=== PATIENT | male | born 1950 | race Caucasian/White ===

== ENCOUNTER 2024-07-17 19:45 | Inpatient (IN) | payer MEDICARE, OTHER, SELFPAY ==
[2024-07-17] VITALS (35 sets, daily range): BP systolic 72–112; BP diastolic 21–86; PULSE 43–124; RESP 10–22; TEMP 37.3; O2SAT 90–100; BMI 19.3
--- NOTE | 2024-07-17 20:00 | RAD_ITS ---
PROCEDURE: CHEST PA AND LATERAL 07/17/2024 REASON FOR EXAM: NEUTROPENIC FEVER TECHNIQUE: Frontal and lateral views of the chest. COMPARISON: None FINDINGS: Hardware: None Heart: Unremarkable. Mediastinum: Moderate-sized hiatal hernia. Lungs: Unremarkable. Bones: Multiple chronic compression fractures of the thoracic spine. RAD/Chest PA and Lateral IMPRESSION: No active disease. Reading Location: [id number]
--- NOTE | 2024-07-17 20:15 | EX.ED.DYSGE1 ---
HPI <NEHEMIAS Knox - Last Filed: 07/17/24 22:13> History of Present Illness Chief Complaint: Weakness Narrative Narrative: 73-year-old male with PMH of cutaneous T-cell lymphoma, squamous cell cancer, adrenal insufficiency, and hypothyroidism presents with 1 week of malaise, intermittent fever and chills, decreased appetite, and family thinks he is more confused over the last 1 to 2 days. 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 He was seen by [facility] eye doctor 1 week ago and prescribed ofloxacin eyedrops for an infection. He had a follow-up visit today in the change the antibiotic. Due to past infections he has very limited vision in the left eye and it is unchanged. He also has chronic skin redness and peeling which is unchanged from his lymphoma. He was on infusion treatments for the lymphoma but they were stopped in March 2024 because they were not helping. 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 His family called Dr. Camacho who is his overseeing physician for this at [facility] in [place] and they stated the patient could come in the office tomorrow for evaluation but family felt he was getting weaker and brought him in. PFSH <NEHEMIAS Knox - Last Filed: 07/17/24 22:13> [facility] Home Medications ?Medication ?Instructions ?Recorded ?Last Taken ?Type albuterol 90 mcg/actuation aerosol 180 mcg inhalation Q6H PRN 07/17/24 Unknown History inhaler ascorbic acid (vitamin C) 250 mg 250 mg PO BID 07/17/24 Unknown History tablet carboxymethylcellulose 1 ea miscellaneous .hourly 07/17/24 Unknown History carboxymethylcellulose sodium 1 % 1 drp EACH EYE Q1H 07/17/24 Unknown History eye liquid gel drops (Refresh Liquigel) emollient combination no.119 1 applic topical DAILY 07/17/24 Unknown History (Eucerin Advanced Repair topical cream) erythromycin 5 mg/gram (0.5 %) eye 1 applic EACH EYE DAILY 07/17/24 Unknown History ointment folic acid 1 mg tablet 3 mg PO DAILY 07/17/24 Unknown History furosemide 20 mg tablet 20 mg PO DAILY 07/17/24 Unknown History hydrocortisone 5 mg tablet (Cortef) 5 mg PO DAILY 07/17/24 Unknown History hydroxyzine HCl 25 mg tablet 25 mg PO TID PRN anxiety 07/17/24 Unknown History levothyroxine 50 mcg tablet 50 mcg PO DAILY 07/17/24 Unknown History (Euthyrox) loratadine 10 mg tablet 10 mg PO DAILY 07/17/24 Unknown History metronidazole 250 mg tablet 250 mg PO BID 07/17/24 Unknown History mogamulizumab-kpkc 4 mg/mL IV 07/17/24 Unknown History intravenous solution (Poteligeo) multivitamin with minerals 1 tab PO DAILY 07/17/24 Unknown History ofloxacin 0.3 % eye drops (Ocuflox) 1 drp EACH EYE Q6H 07/17/24 Unknown History omeprazole 40 mg capsule,delayed 40 mg PO DAILY 07/17/24 Unknown History release polyethylene glycol 3350 17 17 g PO DAILY 07/17/24 Unknown History gram/dose oral powder (Miralax) prednisolone acetate 1 % eye 1 drp LEFT EYE BID 07/17/24 Unknown History drops,suspension sennosides 8.6 mg tablet 8.6 mg PO DAILY 07/17/24 Unknown History (Evac-U-Gen (sennosides)) thiamine HCl (vitamin B1) 100 mg 100 mg PO DAILY 07/17/24 Unknown History tablet triamcinolone acetonide 0.1 % 1 applic topical BID 07/17/24 Unknown History topical ointment valacyclovir 500 mg tablet 500 mg PO DAILY 07/17/24 Unknown History zinc sulfate 50 mg zinc (220 mg) 50 mg PO DAILY 07/17/24 Unknown History capsule (Zinc-220) Allergy/AdvReac Type Severity Reaction Status Date / Time aspirin Allergy Severe Angioedema Verified 07/17/24 19:55 moxifloxacin Allergy Severe Swelling Verified 07/17/24 19:55 shellfish derived Allergy Severe Anaphylaxis Verified 07/17/24 19:55 cemiplimab-rwlc Allergy Intermediate Rash Verified 07/17/24 19:55 Social History Smoking Status: Never smoker ROS <NEHEMIAS Knox - Last Filed: 07/17/24 22:13> ROS ED ROS Narrative Constitutional: Positive for fever, chills, malaise. CVS: Negative for chest pain. Respiratory: Negative for shortness of breath. GI: Negative for abdominal pain, nausea, vomiting, diarrhea. EXAM <NEHEMIAS Knox - Last Filed: 07/17/24 22:13> Physical Exam Narrative Exam Narrative: CONST: Thin male sitting in no acute distress. EYES: Mild left film over her left eye?being treated for eye infection. Chronic decreased vision ENT: Normal inspection, dry mucous membranes. NECK: Normal inspection. No meningismus. RESP: No respiratory distress, CTAB. CVS: Regular rate and rhythm, no murmur, no gallop. ABD: Soft and nontender, no guarding or rebound, nondistended. SKIN: Overall his skin is red, dry, and peeling. No skin sloughing. EXTREMITIES: Normal appearance, no pedal edema. NEURO: Alert and answering questions appropriately. Hard of hearing. PSYCH: Normal affect. Const Vital Signs: 07/17/24 19:46 07/17/24 19:46 07/17/24 19:47 Temperature 99.2 F H Temperature Source Oral Pulse Rate 124 H Respiratory Rate 22 H Respiratory Effort Normal Non-Labored Blood Pressure 72/21 L 81/28 L Blood Pressure Mean 38 45 Pulse Ox 94 Oxygen Delivery Method Room Air 07/17/24 19:53 07/17/24 20:00 07/17/24 20:15 Temperature 99.2 F H Temperature Source Oral Pulse Rate 124 H Respiratory Rate 22 H Respiratory Effort Blood Pressure 81/28 L 95/48 L Blood Pressure Mean 45 64 Pulse Ox 94 Oxygen Delivery Method Room Air Room Air 07/17/24 20:16 07/17/24 20:30 07/17/24 20:31 Temperature Temperature Source Pulse Rate 63 46 L 46 L Respiratory Rate 16 15 16 Respiratory Effort Blood Pressure 87/28 L 79/55 L Blood Pressure Mean 47 63 Pulse Ox 100 100 99 Oxygen Delivery Method 07/17/24 20:45 07/17/24 20:46 07/17/24 20:47 Temperature Temperature Source Pulse Rate 46 L Respiratory Rate 12 12 Respiratory Effort Blood Pressure 94/75 89/43 L Blood Pressure Mean 83 58 Pulse Ox 91 Oxygen Delivery Method Room Air 07/17/24 20:51 07/17/24 20:55 07/17/24 21:00 Temperature Temperature Source Pulse Rate 45 L 48 L Respiratory Rate 15 12 19 H Respiratory Effort Blood Pressure 89/43 L 85/47 L 97/48 L Blood Pressure Mean 57 60 64 Pulse Ox 91 Oxygen Delivery Method Room Air 07/17/24 21:00 07/17/24 21:10 07/17/24 21:15 Temperature Temperature Source Pulse Rate 56 L Respiratory Rate 12 18 17 Respiratory Effort Blood Pressure 96/56 L 97/48 L Blood Pressure Mean 68 63 Pulse Ox 91 90 Oxygen Delivery Method 07/17/24 21:20 07/17/24 21:30 07/17/24 21:40 Temperature Temperature Source Pulse Rate 48 L Respiratory Rate 13 16 11 L Respiratory Effort Blood Pressure 88/48 L 105/57 L 98/49 L Blood Pressure Mean 60 72 63 Pulse Ox 91 90 91 Oxygen Delivery Method 07/17/24 21:45 07/17/24 21:50 07/17/24 22:00 Temperature Temperature Source Pulse Rate Respiratory Rate 14 19 H 12 Respiratory Effort Blood Pressure 104/75 105/64 Blood Pressure Mean 86 76 Pulse Ox 92 Oxygen Delivery Method 07/17/24 22:10 07/17/24 22:15 07/17/24 22:20 Temperature Temperature Source Pulse Rate 44 L Respiratory Rate 14 11 L 15 Respiratory Effort Blood Pressure 99/40 L 93/52 L Blood Pressure Mean 60 65 Pulse Ox Oxygen Delivery Method 07/17/24 22:30 07/17/24 22:40 07/17/24 22:45 Temperature Temperature Source Pulse Rate 49 L 44 L Respiratory Rate 13 10 L 14 Respiratory Effort Blood Pressure 90/36 L 105/53 L Blood Pressure Mean 52 70 Pulse Ox Oxygen Delivery Method 07/17/24 22:50 07/17/24 23:00 Temperature Temperature Source Pulse Rate 44 L Respiratory Rate 13 14 Respiratory Effort Blood Pressure 100/54 L 111/56 L Blood Pressure Mean 67 73 Pulse Ox 98 98 Oxygen Delivery Method <Dr. Dequan Hilario, DO - Last Filed: 07/17/24 23:47> Physical Exam Const Vital Signs: 07/17/24 19:46 07/17/24 19:46 07/17/24 19:47 Temperature 99.2 F H Temperature Source Oral Pulse Rate 124 H Respiratory Rate 22 H Respiratory Effort Normal Non-Labored Blood Pressure 72/21 L 81/28 L Blood Pressure Mean 38 45 Pulse Ox 94 Oxygen Delivery Method Room Air 07/17/24 19:53 07/17/24 20:00 07/17/24 20:15 Temperature 99.2 F H Temperature Source Oral Pulse Rate 124 H Respiratory Rate 22 H Respiratory Effort Blood Pressure 81/28 L 95/48 L Blood Pressure Mean 45 64 Pulse Ox 94 Oxygen Delivery Method Room Air Room Air 07/17/24 20:16 07/17/24 20:30 07/17/24 20:31 Temperature Temperature Source Pulse Rate 63 46 L 46 L Respiratory Rate 16 15 16 Respiratory Effort Blood Pressure 87/28 L 79/55 L Blood Pressure Mean 47 63 Pulse Ox 100 100 99 Oxygen Delivery Method 07/17/24 20:45 07/17/24 20:46 07/17/24 20:47 Temperature Temperature Source Pulse Rate 46 L Respiratory Rate 12 12 Respiratory Effort Blood Pressure 94/75 89/43 L Blood Pressure Mean 83 58 Pulse Ox 91 Oxygen Delivery Method Room Air 07/17/24 20:51 07/17/24 20:55 07/17/24 21:00 Temperature Temperature Source Pulse Rate 45 L 48 L Respiratory Rate 15 12 19 H Respiratory Effort Blood Pressure 89/43 L 85/47 L 97/48 L Blood Pressure Mean 57 60 64 Pulse Ox 91 Oxygen Delivery Method Room Air 07/17/24 21:00 07/17/24 21:10 07/17/24 21:15 Temperature Temperature Source Pulse Rate 56 L Respiratory Rate 12 18 17 Respiratory Effort Blood Pressure 96/56 L 97/48 L Blood Pressure Mean 68 63 Pulse Ox 91 90 Oxygen Delivery Method 07/17/24 21:20 07/17/24 21:30 07/17/24 21:40 Temperature Temperature Source Pulse Rate 48 L Respiratory Rate 13 16 11 L Respiratory Effort Blood Pressure 88/48 L 105/57 L 98/49 L Blood Pressure Mean 60 72 63 Pulse Ox 91 90 91 Oxygen Delivery Method 07/17/24 21:45 07/17/24 21:50 07/17/24 22:00 Temperature Temperature Source Pulse Rate Respiratory Rate 14 19 H 12 Respiratory Effort Blood Pressure 104/75 105/64 Blood Pressure Mean 86 76 Pulse Ox 92 Oxygen Delivery Method 07/17/24 22:10 07/17/24 22:15 07/17/24 22:20 Temperature Temperature Source Pulse Rate 44 L Respiratory Rate 14 11 L 15 Respiratory Effort Blood Pressure 99/40 L 93/52 L Blood Pressure Mean 60 65 Pulse Ox Oxygen Delivery Method 07/17/24 22:30 07/17/24 22:40 07/17/24 22:45 Temperature Temperature Source Pulse Rate 49 L 44 L Respiratory Rate 13 10 L 14 Respiratory Effort Blood Pressure 90/36 L 105/53 L Blood Pressure Mean 52 70 Pulse Ox Oxygen Delivery Method 07/17/24 22:50 07/17/24 23:00 Temperature Temperature Source Pulse Rate 44 L Respiratory Rate 13 14 Respiratory Effort Blood Pressure 100/54 L 111/56 L Blood Pressure Mean 67 73 Pulse Ox 98 98 Oxygen Delivery Method MDM <NEHEMIAS Knox - Last Filed: 07/17/24 22:13> [facility] Narrative Medical decision making narrative: History gathered from: Patient and multiple family members 73-year-old male with history of adrenal insufficiency, cutaneous T-cell lymphoma, squamous cell cancer on immunotherapy presents with 1 week of generalized malaise, weakness, fever and chills. He is being treated for left eye infection which he gets recurrently secondary to his lymphoma. He is awake and alert. BP 72/21, HR 124, RR 22, 94% on room air, 99.2 ?F. He has dry mucous membranes. His skin is generally red, dry, and peeling which is chronic per his family members. He has a normal cardiopulmonary exam. Abdomen soft and nontender. Sepsis workup was initiated and he was given IV fluids at 30 cc/kg (2 L) and blood pressure is improving. He was also given a stress dose of IV hydrocortisone 100 mg and empiric vancomycin and Zosyn after blood cultures. WBC is 7.0. Hemoglobin 11.8. Normal electrolytes. BUN 53, creatinine 1.77. He has no prior labs in our system for comparison. CXR and UA are negative for infection. COVID/flu/RSV is negative. At this time he is septic without a source and with history of immunocompromise and adrenal insufficiency I think he should be transferred to [facility] where all his specialists are located. We do not have the appropriate resources to care for this patient at [place]. I discussed the case with the [facility] transfer line and am awaiting a return call. Lab Data Attestation: I reviewed the patient's lab results. Labs: Laboratory Results - last 24 hr 07/17/24 07/17/24 20:15 20:30 WBC 7.0 RBC 3.64 L Hgb 11.8 L Hct 34.9 L MCV 95.9 H MCH 32.4 H MCHC 33.8 RDW Std Deviation 50.5 H RDW Coeff of Silvio 14.3 Plt Count 136 L MPV 9.5 Immature Gran % (Auto) 0.300 Neut % (Auto) 66.0 Lymph % (Auto) 19.3 [place] % (Auto) 8.3 Eos % (Auto) 5.7 H Baso % (Auto) 0.4 Absolute Neuts (auto) 4.6 Absolute Lymphs (auto) 1.35 Nucleated RBC % 0 Differential Comment SCANNED Reactive Lymphocytes RARE PT 12.7 INR 0.9 APTT 40.7 H Sodium 140 Potassium 4.5 Chloride 105 Carbon Dioxide 23.0 Anion Gap 11 BUN 53 H Creatinine 1.77 H Estim Creat Clear Calc 28.12 L Est GFR (MDRD) Non-Af 40 L BUN/Creatinine Ratio 30.1 H Glucose 169 H Lactic Acid 3.0 H* Calcium 8.6 Total Bilirubin 0.18 AST 46 H ALT 38 Alkaline Phosphatase 233 H Total Protein 5.2 L Albumin 2.9 L Globulin 2.3 Albumin/Globulin Ratio 1.3 Urine Color Yellow Urine Clarity Clear Urine pH 5.0 Ur Specific [place] 1.020 Urine Protein 30 H Urine Glucose (UA) Normal Urine Ketones Negative Urine Occult Blood Negative Urine Nitrite Negative Urine Bilirubin Negative Urine Urobilinogen Normal Ur Leukocyte Esterase Negative Urine RBC 0 SEEN Urine WBC 0 SEEN Ur Squamous Epith Cells 0 SEEN Urine Bacteria RARE Urine Mucus 0 SEEN Radiography Diagnostic Testing: Clinical Impression(s) from Imaging Studies Chest X-Ray 07/17/24 20:00 IMPRESSION: No active disease. Reading Location: [id number] ED attending interpretation of 2 view chest x-ray shows normal heart size, no acute infiltrate. <Dr. Dequan Hilario, DO - Last Filed: 07/17/24 23:47> [facility] History & Record Review Discussion w/independent historian: Patient and Family Lab Data Labs: Laboratory Results - last 24 hr 07/17/24 07/17/24 20:15 20:30 WBC 7.0 RBC 3.64 L Hgb 11.8 L Hct 34.9 L MCV 95.9 H MCH 32.4 H MCHC 33.8 RDW Std Deviation 50.5 H RDW Coeff of Silvio 14.3 Plt Count 136 L MPV 9.5 Immature Gran % (Auto) 0.300 Neut % (Auto) 66.0 Lymph % (Auto) 19.3 [place] % (Auto) 8.3 Eos % (Auto) 5.7 H Baso % (Auto) 0.4 Absolute Neuts (auto) 4.6 Absolute Lymphs (auto) 1.35 Nucleated RBC % 0 Differential Comment SCANNED Reactive Lymphocytes RARE PT 12.7 INR 0.9 APTT 40.7 H Sodium 140 Potassium 4.5 Chloride 105 Carbon Dioxide 23.0 Anion Gap 11 BUN 53 H Creatinine 1.77 H Estim Creat Clear Calc 28.12 L Est GFR (MDRD) Non-Af 40 L BUN/Creatinine Ratio 30.1 H Glucose 169 H Lactic Acid 3.0 H* Calcium 8.6 Total Bilirubin 0.18 AST 46 H ALT 38 Alkaline Phosphatase 233 H Total Protein 5.2 L Albumin 2.9 L Globulin 2.3 Albumin/Globulin Ratio 1.3 Urine Color Yellow Urine Clarity Clear Urine pH 5.0 Ur Specific [place] 1.020 Urine Protein 30 H Urine Glucose (UA) Normal Urine Ketones Negative Urine Occult Blood Negative Urine Nitrite Negative Urine Bilirubin Negative Urine Urobilinogen Normal Ur Leukocyte Esterase Negative Urine RBC 0 SEEN Urine WBC 0 SEEN Ur Squamous Epith Cells 0 SEEN Urine Bacteria RARE Urine Mucus 0 SEEN Radiography Diagnostic Testing: Clinical Impression(s) from Imaging Studies Chest X-Ray 07/17/24 20:00 IMPRESSION: No active disease. Reading Location: [facility] Management Discussion w/another healthcare provider: Hospitalist and Archival Studies Professor ([facility]) Treatment and Re-Evaluation :: I have personally performed a face to face assessment of the patient and have reviewed the CARLOS Note. I performed a substantive portion of the visit including all aspects of the following. My [place] findings include: History is 73-year-old male who has not been here before presenting to the emergency room with hypotension. Patient has a history of T-cell lymphoma renal insufficiency as well as squamous cell carcinoma of the scalp. Follows at [facility]. He is on immunotherapy and is on hydrocortisone. Patient's had a slight cough recently temperatures around 99. Exam is afebrile vital signs demonstrate hypotension and tachycardia. Rhythm appears to be sinus tachycardia on the monitor. Patient has chronic skin changes which the family notes are unchanged which include erythematous hue to his skin as well as dry skin that is flaking. He has chronic changes of the eyes consistent with a long-term infection for which he has been treated. He is alert functionally blind Medical Decison Making basic blood work shows a normal white count. After 2 L of IV fluids his blood pressure responded currently 111/56 with a heart rate of 44. This is being read by the computer as a junctional bradycardia there is a very wavy baseline and I believe him seeing P waves noted V1 V2. As well as in 3. negative interpretation of the chest x-ray is no acute process. Lactic acid is elevated at 3. BUN and creatinine ratio are elevated. Blood cultures obtained COVID influenza RSV swabs were negative. He received vancomycin and Zosyn. [facility] is excepted the patient in transfer unfortunately will have a bed tonight. Spoke with her hospitalist who would like a CT of his chest abdomen pelvis performed. Discharge Plan Triage Chief Complaint: Weakness ED Midlevel Provider: Alondra Fink ED Provider: Dequan Hilario Dx/Rx/DC Orders Clinical Impression: Sepsis, T-cell lymphoma, Adrenal insufficiency, Acute hypotension, Generalized weakness Prescriptions: No Action albuterol 90 mcg/actuation aerosol 180 mcg inhalation Q6H PRN ascorbic acid (vitamin C) 250 mg tablet 250 mg PO BID carboxymethylcellulose Granules 1 ea miscellaneous .hourly erythromycin 5 mg/gram (0.5 %) ointment 1 applic EACH EYE DAILY Eucerin Advanced Repair Cream 1 applic topical DAILY folic acid 1 mg tablet 3 mg PO DAILY furosemide 20 mg tablet 20 mg PO DAILY hydrocortisone [Cortef] 5 mg tablet 5 mg PO DAILY hydroxyzine HCl 25 mg tablet 25 mg PO TID PRN (Reason: anxiety) levothyroxine [Euthyrox] 50 mcg tablet 50 mcg PO DAILY loratadine 10 mg tablet 10 mg PO DAILY metronidazole 250 mg tablet 250 mg PO BID Rx Instructions: Dissolve 1 tablet in 250 mL of NS. [place] on lesion BID multivitamin with minerals Tablet 1 tab PO DAILY ofloxacin [Ocuflox] 0.3 % drops 1 drp EACH EYE Q6H omeprazole 40 mg capsule,delayed release(DR/EC) 40 mg PO DAILY polyethylene glycol 3350 [Miralax] 17 gram/dose powder 17 g PO DAILY carboxymethylcellulose sodium [Refresh Liquigel] 1 % drops, liquid gel 1 drp EACH EYE Q1H Rx Instructions: while awake; not to exceed 16 doses per 24 hour period Poteligeo 4 mg/mL solution IV prednisolone acetate 1 % drops,suspension 1 drp LEFT EYE BID sennosides [Evac-U-Gen (sennosides)] 8.6 mg tablet 8.6 mg PO DAILY thiamine HCl (vitamin B1) 100 mg tablet 100 mg PO DAILY triamcinolone acetonide 0.1 % ointment 1 applic topical BID valacyclovir 500 mg tablet 500 mg PO DAILY zinc sulfate [Zinc-220] 50 mg zinc (220 mg) capsule 50 mg PO DAILY Primary Care Provider: Vincent Ash Referrals: Vincent Ash MD [Primary Care Provider] - Print Language: Czech Disposition Disposition: Acute Care Hospital Discharge Location: [facility]
[2024-07-17 20:39] LABS: Absolute Lymphocyte Count 1.35 X10^3/uL (0.83-4.51); Absolute Neutrophil Count 4.6 X10^3/uL (2.0-7.7); Basophil# 0.03 X10^3/uL; Basophil% 0.4 % (0-1); Eosinophils% 5.7 % (0-5); Hematocrit 34.9 % (40-54); Hemoglobin 11.8 g/dL (13.0-16.5); Lymphocyte # 1.35 X10^3/ul (0.83-4.51); Lymphocyte % 19.3 % (19-41); Mean Corp Hgb Conc 33.8 g/dL (32-36); Mean Corpuscular Hgb 32.4 pg (27.0-32.0); Mean Corpuscular Volume 95.9 fL (80-94); Mean Platelet Vol. 9.5 fl (6.2-12.0); Monocyte# 0.58 X10^3/uL; Monocyte% 8.3 % (0-10); NRBC Flagged by Analyzer 0 % (0-5); Neutrophil # 4.63 X10^3/uL (2.7-7.7); POSITIVE MORPHOLOGY YES; Platelet Count 136 K/mm3 (150-450); RBC Distribution Width CV 14.3 % (11.6-14.6); RBC Distribution Width SD 50.5 fl (35.1-43.9); Red Blood Count 3.64 M/mm3 (4.6-6.2)
[2024-07-17 20:42] LABS: Mucous, Urine 0 SEEN /hpf (<or=2+); Red Blood Cells-Urine 0 SEEN /hpf (0-5); Squamous Epithelial Cells - UA 0 SEEN /hpf (0-5); White Blood Cells 0 SEEN /hpf (0-5)
[2024-07-17 20:43] LABS: International Normalized Ratio 0.9; Prothrombin Time (Protime)PT. 12.7 SECONDS (11.7-14.9)
[2024-07-17 20:44] LABS: Partial Thromboplast Time 40.7 Seconds (24.1-36.2)
[2024-07-17 20:45] LABS: Differential Indicated SCAN CRITERIA MET
[2024-07-17 20:48] LABS: Color, Urine Yellow (Yellow); Glucose, Dipstick Normal (Normal); Ketone-Dipstick Negative (Negative); Leukocyte Esterase-Dipstick Negative /ul (Negative); Nitrite-Dipstick Negative (Negative); Occult Blood-Urine Negative /ul (Negative); Protein-Dipstick 30 mg/dl (Negative); Urine Bilirubin Dipstick Negative (Negative); Urine Clarity Clear (Clear); Urine Urobilinogen Normal (Normal)
[2024-07-17 20:58] LABS: Bacteria RARE /hpf (None Seen)
[2024-07-17 21:03] LABS: ALB/GLOB Ratio 1.3 RATIO (0.9-2.4); AST(SGOT) 46 U/L (<=37); Alanine Aminotransfer ALT/SGPT 38 U/L (<=46); Albumin, Serum 2.9 g/dL (3.4-4.8); Alkaline Phosphatase 233 U/L (40-129); Anion Gap 11 (5-15); BUN 53 mg/dL (4-19); BUN/Creat Ratio 30.1 RATIO (10-20); Calcium,Total 8.6 mg/dL (7.6-11.0); Chloride 105 mmol/L (98-108); Creatinine, Serum 1.77 mg/dL (0.70-1.20); EST Glomerular Filtration Rate 40 (>60); Estimated Creatinine Clearance 28.12 ml/min (50-250); Globulin 2.3 g/dL (2.2-4.2); Glucose 169 mg/dL (70-99); Potassium 4.5 mmol/L (3.3-5.1); Protein, Total 5.2 g/dL (5.9-8.4); Sodium Level 140 mmol/L (133-145); Total Bilirubin 0.18 mg/dL (0.00-1.30)
[2024-07-17] MEDS: Acetaminophen 325 MG Tablet 650 MG PO (21:12)
[2024-07-17] MEDS: Hydrocortisone Sod Succinate 100 MG/2 ML Vial IV (21:12)
[2024-07-17 21:23] LABS: Differential Comment SCANNED; Reactive Lymphocyte RARE
[2024-07-17] MEDS: Piperacil/Tazobactam 3.375 GM in 0.9% Normal Saline (50mL MB+) 50 ML IV (21:39)
--- NOTE | 2024-07-17 21:39 | PCA ---
prior to calling [facility] for potential transfer, confirmed with NEHEMIAS and that [facility] would be the closest facility with the appropriate capabilities (in reference to Medicare pt transportation update stating transport not being covered over 25 miles if there's closer facility with same capabilities).
[2024-07-17] MEDS: 0.9% Normal Saline (1000mL) 1,000 ML 999 ML IV ×2 (22:56→23:10)
[2024-07-17] MEDS: Vancomycin IV 1,000 MG/200 ML BAG 200 MG IV (22:56)
--- NOTE | 2024-07-17 23:09 | HP.PCM.HOS_ITS ---
[facility] - General General Date of Admission: 07/17/24 Date of Service: 07/17/24 Chief Complaint: Generalized Weakness, Fever and Confusion. 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; on immunotherapy with mogamulizumab followed by [facility] oncology, history of adrenal insufficiency; on hydrocortisone 5 mg daily, hypothyroidism; on levothyroxine, essential hypertension; on furosemide, history of seasonal allergies; on loratadine daily, history of anxiety; on as needed hydroxyzine 3 times daily, GERD; on omeprazole, chronic constipation; on MiraLAX and senna, and recently diagnosed Left eye infection; diagnosed at [facility] ophthalmology ~1 week ago with patient currently taking ofloxacin eyedrops OU every 6 hours who presents to [facility] ER complaining of generalized weakness, fever and confusion. Mr. Gutierrez is not a fully-reliable historian at this time so information was gathered from chart, medical staff and computer. According to the records his symptoms began ~1-2 days prior to admission with intermittent fevers, chills, decreased appetite and worsening confusion noted by his family. He had a follow-up visit earlier today with [facility] ophthalmology as his previous antibiotic treatment was not helping with his Left eye appearing unchanged from previous. He also was noted to have chronic skin redness and peeling which is unchanged from previous and has been attributed to his lymphoma. He was on infusion treatments for the lymphoma but they were stopped in March 2024 because they were not helping. 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 His family contacted Dr. Camacho, who is his overseeing physician at [facility] in [place] and were informed that patient could come in the office tomorrow for further evaluation and treatment but patient seemed to be getting worse so they brought him here for further evaluation and treatment. In the ER he was noted to have severe Hypotension with a blood pressure of 72/21 mmHg with Lactic Acidosis of 3 mmol/L present on admission consistent with suspected Sepsis +/- Adrenal Insufficiency with CT scan in the ER revealing p atchy ground-glass opacity within the Right upper lobe concerning for infectious/inflammatory process with several mildly prominent axillary lymph nodes and inguinal lymph nodes raising concern for lymphoma or metastatic disease and age indeterminant compression deformity of T12 vertebral body with ~90% loss of vertebral body height complicated by suspected DARYL; with elevated serum creatinine of 1.77 mg/dL and being at 53 mg/dL BUN and elevated BUN/creatinine ratio of 30.1 present on admission indicating Dehydration compounded by clinical evidence of Metabolic Encephalopathy and Generalized Weakness with the ER physician contacting [facility], who graciously agreed to accept this patient in transfer when a bed is available. However, due to the lack of bed availability at this time the hospitalist service was contacted to admit this patient until such time a bed becomes available. He was then admitted to the ICU for ongoing care for a stay that is expected to extend beyond 2 midnights. PFSH Home Medications ?Medication ?Instructions ?Recorded ?Last Taken ?Type albuterol 90 mcg/actuation aerosol 180 mcg inhalation Q6H PRN 07/17/24 Unknown History inhaler ascorbic acid (vitamin C) 250 mg 250 mg PO BID 5 Unknown History tablet carboxymethylcellulose 1 ea miscellaneous .hourly 0 07/17/24 Unknown History carboxymethylcellulose sodium 1 % 1 drp EACH EYE Q1H 0 07/17/24 Unknown History eye liquid gel drops (Refresh Liquigel) emollient combination no.119 1 applic topical DAILY Unknown History (Eucerin Advanced Repair topical cream) erythromycin 5 mg/gram (0.5 %) eye 1 applic EACH EYE D AILY 07/17/24 Unknown History ointment folic acid 1 mg tablet 3 mg PO DAILY 07/17/24 Unkno wn History furosemide 20 mg tablet 20 mg PO DAILY 07/17/24 Unkn own History hydrocortisone 5 mg tablet (Cortef) 5 mg PO DAILY 11/03 Unknown History hydroxyzine HCl 25 mg tablet 25 mg PO TID PRN anxiety 07/17/24 Unknown History levothyroxine 50 mcg tablet 50 mcg PO DAILY 07/17/24 U nknown History (Euthyrox) loratadine 10 mg tablet 10 mg PO DAILY 07/17/24 Unkn own History metronidazole 250 mg tablet 250 mg PO BID 07/17/24 Unk nown History mogamulizumab-kpkc 4 mg/mL IV 07/17/24 Unknown History intravenous solution (Poteligeo) multivitamin with minerals 1 tab PO DAILY 07/17/24 Unk nown History ofloxacin 0.3 % eye drops (Ocuflox) 1 drp EACH EYE Q6H 07/17/24 Unknown History omeprazole 40 mg capsule,delayed 40 mg PO DAILY Unknown History release polyethylene glycol 3350 17 17 g PO DAILY 07/17/24 Unk nown History gram/dose oral powder (Miralax) prednisolone acetate 1 % eye 1 drp LEFT EYE BID Unknown History drops,suspension sennosides 8.6 mg tablet 8.6 mg PO DAILY 07/17/24 Unk nown History (Evac-U-Gen (sennosides)) thiamine HCl (vitamin B1) 100 mg 100 mg PO DAILY 07/17 Unknown History tablet triamcinolone acetonide 0.1 % 1 applic topical BID 11/03 Unknown History topical ointment valacyclovir 500 mg tablet 500 mg PO DAILY 07/17/24 Un known History zinc sulfate 50 mg zinc (220 mg) 50 mg PO DAILY Unknown History capsule (Zinc-220) Allergy/AdvReac Type Severity Reaction Status Date / Time aspirin Allergy Severe Angioedema Verified 07/17/24 19:55 moxifloxacin Allergy Severe Swelling Verified 07/17/24 19:55 shellfish derived Allergy Severe Anaphylaxis Verified 07/17/24 19:55 cemiplimab-rwlc Allergy Intermediate Rash Verified 07/17/24 19:55 Social History Smoking Status: Never smoker ROS ROS Narrative Full review of systems was not possible due to patient's metabolic encephalopathy and acute illness. Vital Signs Vital Signs Vital Signs: 07/17/24 19:46 07/17/24 19:46 07/17/24 19:47 Temperature 99.2 F H Temperature Source Oral Pulse Rate 124 H Respiratory Rate 22 H Respiratory Effort Normal Non-Labored Blood Pressure 72/21 L 81/28 L Blood Pressure Mean 38 45 Pulse Ox 94 Oxygen Delivery Method Room Air 07/17/24 19:53 07/17/24 20:00 07/17/24 20:15 Temperature 99.2 F H Temperature Source Oral Pulse Rate 124 H Respiratory Rate 22 H Respiratory Effort Blood Pressure 81/28 L 95/48 L Blood Pressure Mean 45 64 Pulse Ox 94 Oxygen Delivery Method Room Air Room Air 07/17/24 20:16 07/17/24 20:30 07/17/24 20:31 Temperature Temperature Source Pulse Rate 63 46 L 46 L Respiratory Rate 16 15 16 Respiratory Effort Blood Pressure 87/28 L 79/55 L Blood Pressure Mean 47 63 Pulse Ox 100 100 99 Oxygen Delivery Method 07/17/24 20:45 07/17/24 20:46 07/17/24 20:47 Temperature Temperature Source Pulse Rate 46 L Respiratory Rate 12 12 Respiratory Effort Blood Pressure 94/75 89/43 L Blood Pressure Mean 83 58 Pulse Ox 91 Oxygen Delivery Method Room Air 07/17/24 20:51 07/17/24 20:55 07/17/24 21:00 Temperature Temperature Source Pulse Rate 45 L 48 L Respiratory Rate 15 12 19 H Respiratory Effort Blood Pressure 89/43 L 85/47 L 97/48 L Blood Pressure Mean 57 60 64 Pulse Ox 91 Oxygen Delivery Method Room Air 07/17/24 21:00 07/17/24 21:10 07/17/24 21:15 Temperature Temperature Source Pulse Rate 56 L Respiratory Rate 12 18 17 Respiratory Effort Blood Pressure 96/56 L 97/48 L Blood Pressure Mean 68 63 Pulse Ox 91 90 Oxygen Delivery Method 07/17/24 21:20 07/17/24 21:30 07/17/24 21:40 Temperature Temperature Source Pulse Rate 48 L Respiratory Rate 13 16 11 L Respiratory Effort Blood Pressure 88/48 L 105/57 L 98/49 L Blood Pressure Mean 60 72 63 Pulse Ox 91 90 91 Oxygen Delivery Method 07/17/24 21:45 07/17/24 21:50 07/17/24 22:00 Temperature Temperature Source Pulse Rate Respiratory Rate 14 19 H 12 Respiratory Effort Blood Pressure 104/75 105/64 Blood Pressure Mean 86 76 Pulse Ox 92 Oxygen Delivery Method 07/17/24 22:10 07/17/24 22:15 07/17/24 22:20 Temperature Temperature Source Pulse Rate 44 L Respiratory Rate 14 11 L 15 Respiratory Effort Blood Pressure 99/40 L 93/52 L Blood Pressure Mean 60 65 Pulse Ox Oxygen Delivery Method 07/17/24 22:30 07/17/24 22:40 07/17/24 22:45 Temperature Temperature Source Pulse Rate 49 L 44 L Respiratory Rate 13 10 L 14 Respiratory Effort Blood Pressure 90/36 L 105/53 L Blood Pressure Mean 52 70 Pulse Ox Oxygen Delivery Method 07/17/24 22:50 07/17/24 23:00 Temperature Temperature Source Pulse Rate 44 L Respiratory Rate 13 14 Respiratory Effort Blood Pressure 100/54 L 111/56 L Blood Pressure Mean 67 73 Pulse Ox 98 98 Oxygen Delivery Method Weight Weight: 119 lb 11.376 oz Body Mass Index (BMI) 19.3 Physical Exam Const alert and no apparent distress Constitutional Narrative: Patient confused and cachectic with reddish, dry, peeling skin. General Appearance: cooperative Orientation / Consciousness: confused HEENT normocephalic, head/scalp atraumatic and hearing grossly normal bilaterally HEENT Narrative: Mucous membranes dry. Eyes PERRL and EOMs intact bilaterally Eyes Narrative: Patient has reddish discoloration of Left eye and is wearing sunglasses. Neck supple Resp Resp Narrative: Decreased breath sounds over RUL. Auscultation: rhonchi Cardio regular rate and regular rhythm GI normal to inspection, nondistended, normoactive bowel sounds, soft to palpation, non-tender and non-distended Extremity normal to inspection, full ROM and no clubbing, cyanosis or edema Skin Skin Narrative: Patient has severe erythematous, dry, peeling skin. Neuro CN's II-XII intact bilaterally, moves all extremities and no focal motor deficits Sensorium / Orientation: awake, alert, oriented to person and oriented to place Speech: speech normal Psych affect normal Results Medical Records Data Attestation: I reviewed the patient's medical records Lab / Micro Data Attestation: I reviewed the patient's lab results. 07/17/24 20:15 07/17/24 20:15 Labs: Laboratory Results - last 24 hr 07/17/24 20:15: WBC 7.0, RBC 3.64 L, Hgb 11.8 L, Hct 34.9 L, MCV 95.9 H, MCH 32.4 H, MCHC 33.8, RDW Std Deviation 50.5 H, RDW Coeff of Sivlio 14.3, Plt Count 136 L, MPV 9.5, Immature Gran % (Auto) 0.300, Neut % (Auto) 66.0, Lymph % (Auto) 19.3, Vance % (Auto) 8.3, Eos % (Auto) 5.7 H, Baso % (Auto) 0.4, Absolute Neuts (auto) 4.6, Absolute Lymphs (auto) 1.35, Nucleated RBC % 0, Differential Comment SCANNED, Reactive Lymphocytes RARE, PT 12.7, INR 0.9, APTT 40.7 H, Sodium 140, Potassium 4.5, Chloride 105, Carbon Dioxide 23.0, Anion Gap 11, BUN 53 H, C reatinine 1.77 H, Estim Creat Clear Calc 28.12 L, Est GFR (MDRD) Non-Af 40 L, B UN/Creatinine Ratio 30.1 H, Glucose 169 H, Lactic Acid 3.0 H*, Calcium 8.6, Total Bilirubin 0.18, AST 46 H, ALT 38, Alkaline Phosphatase 233 H, Total Protein 5.2 L, Albumin 2.9 L, Globulin 2.3, Albumin/Globulin Ratio 1.3 07/17/24 20:30: Urine Color Yellow, Urine Clarity Clear, Urine pH 5.0, Ur Specific [place] 1.020, Urine Protein 30 H, Urine Glucose (UA) Normal, Urine Ketones Negative, Urine Occult Blood Negative, Urine Nitrite Negative, Urine Bilirubin Negative, Urine Urobilinogen Normal, Ur Leukocyte Esterase Negative, Urine RBC 0 SEEN, Urine WBC 0 SEEN, Ur Squamous Epith Cells 0 SEEN, Urine Bacteria RARE, Urine Mucus 0 SEEN Micro: Microbiology 07/17/24 20:15 Mucosa - Nose SARS-CoV-2, Influenza & RSV (PCR) - Final Imaging Radiology Impression Chest X-Ray 07/17/24 20:00 IMPRESSION: No active disease. Reading Location: [facility] Imaging Services [address] [place] [id number] Chest, Abd, Pel w/Contrast MR#: [id number] Acct: [id number] Name: ROXANNA GUTIERREZ Rep #: [id number] : 1950 M 73 From: Antonina Lepe MD PCP: Dr. Vincent Ash MD Status: REG Study: CT Chest, Abd, Pel w/Contrast Date of Exam: 07/17/24 Exam# [id number] Ordering Dr: Dequan Hilario DO PROCEDURE: CT CHEST, ABD, PEL W/CONTRAST 07/17/2024 REASON FOR EXAM: HYPOTENSION TECHNIQUE: Chest, abdomen and pelvis CT with intravenous contrast. Coronal and Sagittal reconstruction series were provided. One or more dose reduction techniques were used (e.g., Automated exposure control, adjustment of the mA and/or kV according to patient size, use of iterative reconstruction technique. PATIENT PREPARATION: Per protocol ORAL CONTRAST TYPE: None. AMOUNT: mL CONTRAST: Isovue 370 VOLUME: 100ML 18 gauge IV RADIATION DOSE SUMMARY: CTDlvol: 890.9 mGy DLP: 542.7 mGycm COMPARISON: None. FINDINGS: CT CHEST: Hardware: None Lymph nodes: Several mildly prominent axillary lymph nodes are seen bilaterally. For example there is a right axillary lymph node, which measures 1.6 x 1.3 cm. Heart and Vasculature: The heart is normal in size. The great vessels are normal in size and caliber. No pericardial effusion. Lungs and Airways: Central airways are patent. Patchy ground-glass opacities in the right upper lobe raising concern for an infectious or inflammatory process. Dependent bibasilar atelectasis. No dominant masses. Pleura: No pleural effusion or pneumothorax. Bones: Age indeterminate compression deformity of the T12 vertebral body with approximately 90% loss of vertebral body height. CT ABDOMEN/PELVIS: Liver: Unremarkable Gallbladder: Unremarkable Spleen: Unremarkable Pancreas: Unremarkable Adrenals: Unremarkable Kidneys: Kidneys are normal in size and configuration. No hydronephrosis or nephrolithiasis. Bladder: No focal bladder wall thickening. Reproductive Organs: Small hydroceles bilaterally. Bowel: No small bowel or large bowel obstruction or dilation. Appendix: Not visualized Lymph nodes: Several enlarged inguinal lymph nodes within the bilateral lungs Vasculature: Patent vasculature. Peritoneum / Retroperitoneum: No lymphadenopathy. Bones: No aggressive osseous lesions. No acute fractures. Multilevel degenerative changes throughout the spine. CT/CT Chest, Abd, Pel w/Contrast IMPRESSION: 1. Several mildly prominent axillary lymph nodes, and inguinal lymph nodes raising concern for lymphoma or metastatic disease. 2. Age-indeterminate compression deformity of the T12 vertebral body with approximately 90% loss of vertebral body height. 3. Patchy ground-glass opacity within the right upper lobe, raising concern for an infectious/inflammatory process. Reading Location: [facility] CC: Dr. Dequan Hilario DO; Dr. Vincent Ash MD ~ Input Output Clerk: Signed Assessment & Plan Assessment/Plan (1) Sepsis: QUALIFIERS: Sepsis acute organ dysfunction status: with acute organ dysfunction Sepsis type: sepsis due to unspecified organism Severe sepsis acute organ dysfunction type: encephalopathy Severe sepsis shock status: with septic shock Qualified Code(s): A41.9 - Sepsis, unspecified organism; R65.21 - Severe sepsis with septic shock; G93.41 - Metabolic encephalopathy (2) Pneumonia: QUALIFIERS: Pneumonia type: due to unspecified organism L aterality: right Lung location: upper lobe of lung Qualified Code(s): J18.9 - Pneumonia, unspecified organism (3) Acute hypotension: (4) Adrenal insufficiency: (5) DARYL (acute kidney injury): (6) Dehydration: (7) Acute metabolic encephalopathy: (8) Generalized weakness: (9) T-cell lymphoma: PLAN: Plan 1. Severe Hypotension with a blood pressure of 72/21 mmHg with Lactic Acidosis of 3 mmol/L present on admission consistent with suspected Sepsis; with Septic Shock +/- Adrenal Crisis/Insufficiency with CT scan in ER positive for RUL infiltrate consistent with Pneumonia - Admit to ICU for treatment under the sepsis protocol. Continue IV fluid bolus plus empiric IV piperacillin- tazobactam and vancomycin begun in ER and await culture and sensitivity data. Check urinary antigens for Streptococcus pneumonia and Legionella. Serialize lactate to follow trend. Patient treated emergently with 100 mg of hydrocortisone in ER with plan to continue steroid replacement with 50 mg IV every 8 hours. Start IV pantoprazole for GI prophylaxis with high-dose steroids. Give acetaminophen as needed for pain or fever. CT scans of the chest, abdomen and pelvis have been ordered by the ER physician and are pending at this time. Finally, we will transfer patient to [facility] when a bed becomes available without appreciated in advance. 2. DARYL; with elevated serum creatinine of 1.77 mg/dL and being at 53 mg/dL BUN and elevated BUN/creatinine ratio of 30.1 present on admission indicating Dehydration complicating #1 - Vigorously volume resuscitate as outlined in #1 and recheck renal indices daily to follow trend of hopeful improvement. Notably patient has no previous labs in our system for comparison. 3. Acute Metabolic Encephalopathy and Generalized Weakness attributable to #1 & #2 - Maintain supportive care as outlined above. Check TSH, B12, Folate, HgbA1c, UDS and RABIA to evaluate for potentially reversible causes of confusion. Otherwise, maintain supportive care as outlined above and monitor for improvement. 4. 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 5. Recently diagnosed Left eye infection; diagnosed at [facility] ophthalmology ~1 week ago with patient currently taking ofloxacin eyedrops OU every 6 hours - Resume antibiotic eye drops as previous. 6. Hypothyroidism; on levothyroxine - Continue levothyroxine and check TSH. 7. Essential Hypertension; on furosemide - Hold scheduled furosemide in light of hypotension outlined in #1. 8. History of seasonal allergies; on loratadine daily - Maintain current regimen as before. 9. History of anxiety; on as needed hydroxyzine 3 times daily - Resume current regimen. 10. GERD; on omeprazole - Continue PPI IV as outlined in #1. 11. Chronic constipation; on MiraLAX and senna - Maintain current bowel regimen. 12. DVT prophylaxis - Heparin 5,000U sq BID plus SCD's. Total time: Approximately (but not less than) 75 minutes. Sepsis Attestation Sepsis Alert: Yes Sepsis Attestation: Agree w/Sepsis Date exam was performed: 07/17/24 Time exam was performed: 23:45 Possible Source of Sepsis: Unknown Sepsis Organ Dysfunction Criteria Present: SBP < 90 mmHg or MAP < 65 mmHg, Lactic Acid > 2 mmol/L and New/Unexplained change in mental status Fluid Resuscitation Fluid resuscitation indicated?: Yes Fluid Resuscitation ordered: 30 ml/kg fluid bolus ordered Amount of fluid ordered: 2 Sepsis Note Date exam was performed: 07/18/24 Time exam was performed: 03:45 Sepsis Attestation: Sepsis re-evaluation was performed Response to fluids: Fluid responsive hypotension Charges/Coding Visit Charges Inpatient E&M: 88005 Init Hosp L3
--- NOTE | 2024-07-17 23:22 | EKG12_ITS ---
Test Reason : WEAKNESS Blood Pressure : */* mmHG Vent. Rate : 44 BPM Atrial Rate : * BPM P-R Int : * ms QRS Dur : 86 ms QT Int : 602 ms P-R-T Axes : * 50 40 degrees QTcB Int : 514 ms Junctional bradycardia Prolonged QT Abnormal ECG Confirmed by MARYAN HUNTLEY, LADONNA ([id number]), film or videotape editor RASHIDA BUNDY ([id number]) on 07/18/2024 8:10:10 AM Referred By: Confirmed By: LADONNA STEINBERG MD
--- NOTE | 2024-07-17 23:24 | CT_ITS ---
PROCEDURE: CT CHEST, ABD, PEL W/CONTRAST 07/17/2024 REASON FOR EXAM: HYPOTENSION TECHNIQUE: Chest, abdomen and pelvis CT with intravenous contrast. Coronal and Sagittal reconstruction series were provided. One or more dose reduction techniques were used (e.g., Automated exposure control, adjustment of the mA and/or kV according to patient size, use of iterative reconstruction technique. PATIENT PREPARATION: Per protocol ORAL CONTRAST TYPE: None. AMOUNT: mL CONTRAST: Isovue 370 VOLUME: 100ML 18 gauge IV RADIATION DOSE SUMMARY: CTDlvol: 890.9 mGy DLP: 542.7 mGycm COMPARISON: None. FINDINGS: CT CHEST: Hardware: None Lymph nodes: Several mildly prominent axillary lymph nodes are seen bilaterally. For example there is a right axillary lymph node, which measures 1.6 x 1.3 cm. Heart and Vasculature: The heart is normal in size. The great vessels are normal in size and caliber. No pericardial effusion. Lungs and Airways: Central airways are patent. Patchy ground-glass opacities in the right upper lobe raising concern for an infectious or inflammatory process. Dependent bibasilar atelectasis. No dominant masses. Pleura: No pleural effusion or pneumothorax. Bones: Age indeterminate compression deformity of the T12 vertebral body with approximately 90% loss of vertebral body height. CT ABDOMEN/PELVIS: Liver: Unremarkable Gallbladder: Unremarkable Spleen: Unremarkable Pancreas: Unremarkable Adrenals: Unremarkable Kidneys: Kidneys are normal in size and configuration. No hydronephrosis or nephrolithiasis. Bladder: No focal bladder wall thickening. Reproductive Organs: Small hydroceles bilaterally. Bowel: No small bowel or large bowel obstruction or dilation. Appendix: Not visualized Lymph nodes: Several enlarged inguinal lymph nodes within the bilateral lungs Vasculature: Patent vasculature. Peritoneum / Retroperitoneum: No lymphadenopathy. Bones: No aggressive osseous lesions. No acute fractures. Multilevel degenerative changes throughout the spine. CT/CT Chest, Abd, Pel w/Contrast IMPRESSION: 1. Several mildly prominent axillary lymph nodes, and inguinal lymph nodes rais ing concern for lymphoma or metastatic disease. 2. Age-indeterminate compression deformity of the T12 vertebral body with appro ximately 90% loss of vertebral body height. 3. Patchy ground-glass opacity within the right upper lobe, raising concern for an infectious/inflammatory process. Reading Location: [facility]
[2024-07-18] VITALS (20 sets, daily range): BP systolic 89–134; BP diastolic 50–92; PULSE 40–65; RESP 12–18; TEMP 26.8–37; O2SAT 10–100; BMI 19.3; BMI 19.0
[2024-07-18 00:16] LABS: Reflex Lactate? Y
[2024-07-18 00:36] LABS: Hemoglobin A1c 5.8 % (<=5.6)
[2024-07-18] MEDS: Pantoprazole Sodium 40 MG in 0.9% Normal Saline (100mL MB+) 100 ML 330 MG IV ×2 (01:00→11:30)
[2024-07-18] MEDS: 0.9% Normal Saline (1000mL) 1,000 ML 200 ML IV ×2 (01:01→03:20)
[2024-07-18 02:51] LABS: Amphetamine Urine NEGATIVE (<1000 ng/mL); Barbiturate Urine NEGATIVE (< 200 ng/mL); Benzodiazepine Urine NEGATIVE (< 200 ng/mL); Buprenorphine Urine NEGATIVE (< 200 ng/mL); Cocaine Urine NEGATIVE (< 300 ng/mL); Fentanyl, Urine NEGATIVE; Methadone Urine NEGATIVE (< 300 ng/mL); Opiates Urine NEGATIVE (< 300 ng/mL); Oxycodone, Urine NEGATIVE (< 100 ng/mL); PCP Urine NEGATIVE (< 25 ng/mL); THC Urine NEGATIVE (< 50 ng/mL)
[2024-07-18 02:51] LABS: Lactic Acid 1.1 mmol/L (0.0-2.0)
[2024-07-18 02:51] LABS: Alcohol, Blood (Medical)-Serum < 10.1 mg/dL (<=10.0)
[2024-07-18] MEDS: 0.9% Normal Saline (1000mL) 1,000 ML 999 ML IV ×2 (03:20→03:23)
--- NOTE | 2024-07-18 03:32 | PCM.RX.CS ---
Consult Antibiotic Management Pharmacy has been consulted to manage selected antibiotic: Vancomycin Type of Intervention Type of Consult: New start Labs Labs: Sodium 140 mmol/L (133-145) 07/17/24 20:15 Potassium 4.5 mmol/L (3.3-5.1) 07/17/24 20:15 Chloride 105 mmol/L (98-108) 07/17/24 20:15 Carbon Dioxide 23.0 mmol/L (21.0-32.0) 07/17/24 20:15 Anion Gap 11 (5-15) 07/17/24 20:15 BUN 53 mg/dL (4-19) H 07/17/24 20:15 Creatinine 1.77 mg/dL (0.70-1.20) H 07/17/24 20:15 Est GFR (MDRD) Non-Af 40 (>60) L 07/17/24 20:15 BUN/Creatinine Ratio 30.1 RATIO (10-20) H 07/17/24 20:15 Glucose 169 mg/dL (70-99) H 07/17/24 20:15 Microbiology Microbiology: Microbiology 07/17/24 20:15 Mucosa - Nose SARS-CoV-2, Influenza & RSV (PCR) - Final Dosing Weight Weight used for dosin.3 kg Estimated Creatinine Clearance Estimated Creatinine Clearance: 28.12 Goal Trough Goal Trough: 15-20 mcg/mL Pharmacy Plan for Drug Dosing Pharmacy Plan for Drug Dosing: Pharmacy Service will continue to monitor and adjust dosing as required. 1000MG GIVEN IN ER 07/17 @ 4434. START 500MG Q24H AND DRAW TROUGH PRIOR TO 3RD DOSE Follow-Up Labs Follow-Up Labs: Trough: Vancomycin Date/Time Labs Ordered Labs to be done on [date and time ordered]: 07/19 @ 2124
[2024-07-18 05:31] LABS: Vitamin B12 1661 pg/mL (180-914)
[2024-07-18] MEDS: Glycerin/Hypromellose/PEG400 15 ml Bottle 1 DRP EACH EYE ×16 (05:32→23:30)
[2024-07-18] MEDS: Hydrocortisone Sod Succinate 100 MG/2 ML Vial 50 MG IV ×2 (05:32→14:00)
[2024-07-18] MEDS: Levothyroxine 50 MCG Tablet PO (05:34)
[2024-07-18 05:44] LABS: Cholesterol 80 mg/dL (<=200); High Density Lipoprotein 57 mg/dL; Low Density Lipoprotein Calc. 16 mg/dL; Triglycerides 34 mg/dL; Very Low Density Lipoprotein 7 mg/dL (5-40); cholesterol:hdl ratio screen 1.39
[2024-07-18] MEDS: OFLOXACIN 5 ML DROPS 1 ML OPHTHALMIC ×3 (06:23→18:14)
[2024-07-18] MEDS: Piperacil/Tazobactam 3.375 GM in 0.9% Normal Saline (50mL MB+) 50 ML IV ×3 (06:23→22:54)
--- NOTE | 2024-07-18 07:00 | PCM.PN.HOSP ---
Subjective Subjective Patient sitting up in bed, fidgeting, somewhat confused, denies abdominal pain or shortness of breath, he denies any current complaints but primarily is saying no to everything so unclear how accurate this is, patient fidgeting with blanket but does not appear to be in acute distress Objective Data Objective Data Vital Signs: Vital Signs Temp Pulse Resp BP Pulse Ox O2 Del Method 97.4 F L 61 16 134/92 H 100 Room Air 07/18/24 04:00 07/18/24 06:00 07/18/24 06:00 07/18/24 06:00 07/18/24 06:00 07/18/24 06:00 Oxygen Delivery Method Room Air Weight: 53.4 kg Body Mass Index (BMI) 19.0 Intake & Output: Intake and Output for Last 24 Hours 07/16/24 07/17/24 07/18/24 23:59 23:59 23:59 Intake Total 2049 1823.28 / 1823.28 Balance 2049 1823.28 / 1823.28 Lab / Micro Data 07/18/24 07:50 07/18/24 07:50 Labs: Laboratory Results - last 24 hr 07/17/24 20:15: WBC 7.0, RBC 3.64 L, Hgb 11.8 L, Hct 34.9 L, MCV 95.9 H, MCH 32.4 H, MCHC 33.8, RDW Std Deviation 50.5 H, RDW Coeff of Silvio 14.3, Plt Count 136 L, MPV 9.5, Immature Gran % (Auto) 0.300, Neut % (Auto) 66.0, Lymph % (Auto) 19.3, [place] % (Auto) 8.3, Eos % (Auto) 5.7 H, Baso % (Auto) 0.4, Absolute Neuts (auto) 4.6, Absolute Lymphs (auto) 1.35, Nucleated RBC % 0, Differential Comment SCANNED, Reactive Lymphocytes RARE, PT 12.7, INR 0.9, APTT 40.7 H, Sodium 140, Potassium 4.5, Chloride 105, Carbon Dioxide 23.0, Anion Gap 11, BUN 53 H, Creatinine 1.77 H, Estim Creat Clear Calc 28.12 L, Est GFR (MDRD) Non-Af 40 L, BUN/Creatinine Ratio 30.1 H, Glucose 169 H, Hemoglobin A1c 5.8, Lactic Acid 3.0 H*, Calcium 8.6, Total Bilirubin 0.18, AST 46 H, ALT 38, Alkaline Phosphatase 233 H, Total Protein 5.2 L, Albumin 2.9 L, Globulin 2.3, Albumin/Globulin Ratio 1.3, Serum Folate 37.50 H, TSH 1.240, Ethyl Alcohol < 10.1 07/17/24 20:30: Urine Color Yellow, Urine Clarity Clear, Urine pH 5.0, Ur Specific [place] 1.020, Urine Protein 30 H, Urine Glucose (UA) Normal, Urine Ketones Negative, Urine Occult Blood Negative, Urine Nitrite Negative, Urine Bilirubin Negative, Urine Urobilinogen Normal, Ur Leukocyte Esterase Negative, Urine RBC 0 SEEN, Urine WBC 0 SEEN, Ur Squamous Epith Cells 0 SEEN, Urine Bacteria RARE, Urine Mucus 0 SEEN, Urine Opiates Screen NEGATIVE, U Buprenorphine Qual NEGATIVE, Ur Oxycodone Screen NEGATIVE, Urine Methadone Screen NEGATIVE, Urine Fentanyl Screen NEGATIVE, Ur Barbiturates Screen NEGATIVE, Ur Phencyclidine Scrn NEGATIVE, Ur Amphetamines Screen NEGATIVE, U Benzodiazepines Scrn NEGATIVE, Urine Cocaine Screen NEGATIVE, U Cannabinoids Screen NEGATIVE 07/18/24 00:12: Lactic Acid 1.1 07/18/24 04:39: Triglycerides 34, Cholesterol 80, LDL Cholesterol, Calc 16, VLDL Cholesterol 7, HDL Cholesterol 57, Cholesterol/HDL Ratio 1.39, Vitamin B12 1661 H Micro: Microbiology 07/17/24 20:15 Mucosa - Nose SARS-CoV-2, Influenza & RSV (PCR) - Final Radiography Diagnostic Testing: Radiology Impression Chest X-Ray 07/17/24 20:00 IMPRESSION: No active disease. Reading Location: [facility] Chest/Abdomen/Pelvis CT 07/17/24 23:24 IMPRESSION: 1. Several mildly prominent axillary lymph nodes, and inguinal lymph nodes raising concern for lymphoma or metastatic disease. 2. Age-indeterminate compression deformity of the T12 vertebral body with approximately 90% loss of vertebral body height. 3. Patchy ground-glass opacity within the right upper lobe, raising concern for an infectious/inflammatory process. Reading Location: [facility] Physical Exam Narrative General: Patient awake and alert, patient answers no to everything HEENT: Atraumatic, skin changes diffusely Eyes: Anicteric Neck: Supple Respiratory: No overt respiratory distress, somewhat diminished bilaterally Cardiovascular: Regular rate and rhythm GI: Soft, nontender, nondistended Extremities: No significant pitting edema Musculoskeletal: Moving all extremities Neuro: No overt focal neurological deficits Skin: Diffuse skin changes noted Psych: Superficially cooperative Assessment & Plan Assessment/Plan (1) Sepsis: QUALIFIERS: Sepsis acute organ dysfunction status: with acute organ dysfunction Sepsis type: sepsis due to unspecified organism Severe sepsis acute organ dysfunction type: encephalopathy Severe sepsis shock status: with septic shock Qualified Code(s): A41.9 - Sepsis, unspecified organism; R65.21 - Severe sepsis with septic shock; G93.41 - Metabolic encephalopathy (2) Pneumonia: QUALIFIERS: Laterality: right Lung location: upper lobe of lung Pneumonia type: due to unspecified organism Qualified Code(s): J18.9 - Pneumonia, unspecified organism PLAN: Plan #Suspected sepsis secondary to right upper lobe pneumonia -Patient presented with metabolic encephalopathy, temperature 99.2, blood pressure 72/21 with a MAP of 38 and remained hypotensive with systolics 70s to 80s and maps less than 65, respiratory rate 22 and O2 sat as low as 90% on room air - Labs revealed platelet count of 136, BUN 53 with a creatinine of 1.77 suspected to be DARYL and lactic acid of 3 -Patient completed fluid resuscitation and was placed on stress dose steroids -UA did not appear infectious -Blood culture sent on admission -Imaging: CT chest/abdomen/pelvis with concern for right upper lobe pneumonia -DuoNebs and as needed albuterol -Sputum culture, COVID negative, respiratory panel ordered -Urine antigens -Mucinex, I/S - Given severity of patient's illness he was started on vancomycin and Zosyn, will add azithromycin to cover atypicals, MRSA swab negative so vancomycin discontinued - Patient pending transfer to [facility] # Adrenal crisis on top of chronic adrenal insufficiency -patient on daily hydrocortisone -Patient now receiving stress dose steroids and has had improvement in blood pressure though still is borderline # Suspect DARYL - No previous values available in our system however creatinine 1.77 with BUN of 53 on presentation - Patient fluid resuscitated - Avoid nephrotoxic agents - Monitor BMPs daily # 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
--- NOTE | 2024-07-18 07:38 | EX.PCM.CONCC ---
Assessment & Plan Assessment/Plan (1) Sepsis: QUALIFIERS: Sepsis type: sepsis due to unspecified organism Sepsis acute organ dysfunction status: with acute organ dysfunction Severe sepsis acute organ dysfunction type: encephalopathy Severe sepsis shock status: with septic shock Qualified Code(s): A41.9 - Sepsis, unspecified organism; R65.21 - Severe sepsis with septic shock; G93.41 - Metabolic encephalopathy (2) Adrenal insufficiency: PLAN: Plan RECOMMENDATIONS: 1. Continue empiric antimicrobials. Check MRSA screen. 2. Continue stress dose steroids as ordered. 3. Continue eyedrops per outpatient recommendations. 4. Subcutaneous heparin for DVT prophylaxis. 5. Encourage incentive spirometer use and mobilize patient as tolerated. IMPRESSIONS: 1. Sepsis The patient presented with sepsis due to suspected pneumonia with acute sepsis related organ dysfunction as evidenced by hypotension and lactic acidemia. The patient's hemodynamic status improved with volume resuscitation and initiation of corticosteroids, given his history of adrenal insufficiency. The patient remains hemodynamically stable, without the need for vasopressor support. He will be continued on empiric antimicrobials as ordered. 2. History of adrenal insufficiency Continue stress dose steroids as ordered, given that the patient is maintained on low-dose hydrocortisone on an outpatient basis. 3. Acute kidney injury Unclear baseline. However, I do suspect that the creatinine increase may be prerenal in etiology. Will obtain repeat labs this morning and continue to monitor urine output. There is no current indication for renal replacement therapy at the present time. 4. 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 Continue home medications as indicated. CODE STATUS: Full code This note was generated with [employer] software. It may contain incorrect words, spelling, and punctuation that were not noted in checking the note before signing. HPI Consult Data Date of Consult: 07/18/24 HPI Narrative Reason for Consultation: Sepsis HPI Narrative: The patient is a 73-year-old male, with a history as outlined below, who presented to the emergency department on July 17 with generalized weakness and fever. The patient does have a known history of adrenal insufficiency on hydrocortisone as an outpatient along with cutaneous T-cell lymphoma and squamous cell cancer followed by [facility] oncology, hypothyroidism, anxiety and recently diagnosed left eye infection. On presentation to the emergency department, the patient was documented to be febrile, tachycardic and hypotensive. Initial laboratory evaluation revealed a normal white blood cell count with a hemoglobin of 11.8 g/dL and platelet count of 136,000. Chemistry profile was notable creatinine of 1.7. Lactate was elevated at 3.0. CT imaging of the chest/abdomen and pelvis demonstrated a groundglass opacity in the right upper lobe. The patient subsequently received supplemental IV fluid hydration and was initiated on empiric antimicrobials and stress dose steroids. He was admitted to the medical intensive care unit for further management. Overnight, the patient has remained hemodynamically stable without the need for vasopressor support. He remains on empiric antimicrobials with pending transfer to [facility]. CODE STATUS was discussed with the patient this morning. Full CODE STATUS was elected. [facility] Home Medications ?Medication ?Instructions ?Recorded ?Last Taken ?Type albuterol 90 mcg/actuation aerosol 180 mcg inhalation Q6H PRN 07/17/24 Unknown History inhaler ascorbic acid (vitamin C) 250 mg 250 mg PO BID 07/17/24 Unknown History tablet carboxymethylcellulose 1 ea miscellaneous .hourly 07/17/24 Unknown History carboxymethylcellulose sodium 1 % 1 drp EACH EYE Q1H 07/17/24 Unknown History eye liquid gel drops (Refresh Liquigel) emollient combination no.119 1 applic topical DAILY 07/17/24 Unknown History (Eucerin Advanced Repair topical cream) erythromycin 5 mg/gram (0.5 %) eye 1 applic EACH EYE DAILY 07/17/24 Unknown History ointment folic acid 1 mg tablet 3 mg PO DAILY 07/17/24 Unknown History furosemide 20 mg tablet 20 mg PO DAILY 07/17/24 Unknown History hydrocortisone 5 mg tablet (Cortef) 5 mg PO DAILY 07/17/24 Unknown History hydroxyzine HCl 25 mg tablet 25 mg PO TID PRN anxiety 07/17/24 Unknown History levothyroxine 50 mcg tablet 50 mcg PO DAILY 07/17/24 Unknown History (Euthyrox) loratadine 10 mg tablet 10 mg PO DAILY 07/17/24 Unknown History metronidazole 250 mg tablet 250 mg PO BID 07/17/24 Unknown History mogamulizumab-kpkc 4 mg/mL IV 07/17/24 Unknown History intravenous solution (Poteligeo) multivitamin with minerals 1 tab PO DAILY 07/17/24 Unknown History ofloxacin 0.3 % eye drops (Ocuflox) 1 drp EACH EYE Q6H 07/17/24 Unknown History omeprazole 40 mg capsule,delayed 40 mg PO DAILY 07/17/24 Unknown History release polyethylene glycol 3350 17 17 g PO DAILY 07/17/24 Unknown History gram/dose oral powder (Miralax) prednisolone acetate 1 % eye 1 drp LEFT EYE BID 07/17/24 Unknown History drops,suspension sennosides 8.6 mg tablet 8.6 mg PO DAILY 07/17/24 Unknown History (Evac-U-Gen (sennosides)) thiamine HCl (vitamin B1) 100 mg 100 mg PO DAILY 07/17/24 Unknown History tablet triamcinolone acetonide 0.1 % 1 applic topical BID 07/17/24 Unknown History topical ointment valacyclovir 500 mg tablet 500 mg PO DAILY 07/17/24 Unknown History zinc sulfate 50 mg zinc (220 mg) 50 mg PO DAILY 07/17/24 Unknown History capsule (Zinc-220) Allergy/AdvReac Type Severity Reaction Status Date / Time aspirin Allergy Severe Angioedema Verified 07/17/24 19:55 moxifloxacin Allergy Severe Swelling Verified 07/17/24 19:55 shellfish derived Allergy Severe Anaphylaxis Verified 07/17/24 19:55 cemiplimab-rwlc Allergy Intermediate Rash Verified 07/17/24 19:55 Social History Smoking Status: Never smoker ROS ROS Narrative 10 systems were reviewed with pertinent positives as noted in the HPI above. Physical Exam Const alert and no apparent distress General Appearance: cooperative HEENT normocephalic and head/scalp atraumatic Eyes PERRL and EOMs intact bilaterally Neck supple General: trachea midline Resp normal respiratory effort Auscultation: Negative for rales, rhonchi or wheezes Cardio S1 normal heart sound and S2 normal heart sound Rate: bradycardia GI normal to inspection, nondistended, normoactive bowel sounds Extremity no clubbing, cyanosis or edema Skin Skin Narrative: Diffusely erythematous thickened and peeling skin. Neuro CN's II-XII intact bilaterally and no focal motor deficits Psych cooperative and affect normal Lab / Micro Data 07/18/24 07:50 07/18/24 07:50 Labs: Laboratory Results - last 24 hr 07/17/24 20:15: WBC 7.0, RBC 3.64 L, Hgb 11.8 L, Hct 34.9 L, MCV 95.9 H, MCH 32.4 H, MCHC 33.8, RDW Std Deviation 50.5 H, RDW Coeff of Silvio 14.3, Plt Count 136 L, MPV 9.5, Immature Gran % (Auto) 0.300, Neut % (Auto) 66.0, Lymph % (Auto) 19.3, [place] % (Auto) 8.3, Eos % (Auto) 5.7 H, Baso % (Auto) 0.4, Absolute Neuts (auto) 4.6, Absolute Lymphs (auto) 1.35, Nucleated RBC % 0, Differential Comment SCANNED, Reactive Lymphocytes RARE, PT 12.7, INR 0.9, APTT 40.7 H, Sodium 140, Potassium 4.5, Chloride 105, Carbon Dioxide 23.0, Anion Gap 11, BUN 53 H, Creatinine 1.77 H, Estim Creat Clear Calc 28.12 L, Est GFR (MDRD) Non-Af 40 L, BUN/Creatinine Ratio 30.1 H, Glucose 169 H, Hemoglobin A1c 5.8, Lactic Acid 3.0 H*, Calcium 8.6, Total Bilirubin 0.18, AST 46 H, ALT 38, Alkaline Phosphatase 233 H, Total Protein 5.2 L, Albumin 2.9 L, Globulin 2.3, Albumin/Globulin Ratio 1.3, Serum Folate 37.50 H, TSH 1.240, Ethyl Alcohol < 10.1 07/17/24 20:30: Urine Color Yellow, Urine Clarity Clear, Urine pH 5.0, Ur Specific [place] 1.020, Urine Protein 30 H, Urine Glucose (UA) Normal, Urine Ketones Negative, Urine Occult Blood Negative, Urine Nitrite Negative, Urine Bilirubin Negative, Urine Urobilinogen Normal, Ur Leukocyte Esterase Negative, Urine RBC 0 SEEN, Urine WBC 0 SEEN, Ur Squamous Epith Cells 0 SEEN, Urine Bacteria RARE, Urine Mucus 0 SEEN, Urine Opiates Screen NEGATIVE, U Buprenorphine Qual NEGATIVE, Ur Oxycodone Screen NEGATIVE, Urine Methadone Screen NEGATIVE, Urine Fentanyl Screen NEGATIVE, Ur Barbiturates Screen NEGATIVE, Ur Phencyclidine Scrn NEGATIVE, Ur Amphetamines Screen NEGATIVE, U Benzodiazepines Scrn NEGATIVE, Urine Cocaine Screen NEGATIVE, U Cannabinoids Screen NEGATIVE 07/18/24 00:12: Lactic Acid 1.1 07/18/24 04:39: Triglycerides 34, Cholesterol 80, LDL Cholesterol, Calc 16, VLDL Cholesterol 7, HDL Cholesterol 57, Cholesterol/HDL Ratio 1.39, Vitamin B12 1661 H Micro: Microbiology 07/17/24 20:15 Mucosa - Nose SARS-CoV-2, Influenza & RSV (PCR) - Final Imaging Radiology Impression Chest X-Ray 07/17/24 20:00 IMPRESSION: No active disease. Reading Location: [facility] Chest/Abdomen/Pelvis CT 07/17/24 23:24 IMPRESSION: 1. Several mildly prominent axillary lymph nodes, and inguinal lymph nodes raising concern for lymphoma or metastatic disease. 2. Age-indeterminate compression deformity of the T12 vertebral body with approximately 90% loss of vertebral body height. 3. Patchy ground-glass opacity within the right upper lobe, raising concern for an infectious/inflammatory process. Reading Location: [facility] Charges/Coding Visit Charges Inpatient E&M: 43364 Init Hosp L3
[2024-07-18] MEDS: Multivitamins,Ther W-Minerals Tablet 1 TABLET PO (07:53)
[2024-07-18] MEDS: Thiamine Hydrochloride 100 MG Tablet PO (07:53)
[2024-07-18] MEDS: Folic Acid 1 MG Tablet 3 MG PO (07:53)
[2024-07-18] MEDS: Lactobacillis Acidophilus 1 CAP PO ×3 (07:54→18:14)
[2024-07-18] MEDS: Acyclovir 200 MG Capsule 400 MG PO (07:54)
[2024-07-18] MEDS: Senna Tablet 1 TABLET PO ×2 (07:54→07:55)
[2024-07-18] MEDS: Triamcinolone 0.1% Ointment 15 gm tube 1 APPLIC TOPICAL ×2 (07:55→22:15)
[2024-07-18] MEDS: Ascorbic Acid 500 MG Tablet 250 MG PO (07:55)
[2024-07-18] MEDS: Polyethylene Glycol 3350 17 GM PACKET PO (07:55)
[2024-07-18] MEDS: Zinc Sulfate 50 mg zinc (220 mg) ORAL capsule PO (07:55)
[2024-07-18] MEDS: Heparin Injection (Vial) 5,000 UNIT/ML VIAL 5000 UNIT SC ×2 (07:55→22:15)
[2024-07-18] MEDS: prednisoLONE eye drops (5 mL) 1 DROP OPTH.BTL 1 DRP LEFT EYE ×2 (07:56→22:14)
[2024-07-18] MEDS: Erythromycin Base 1 OPTH.TUBE 1 APPLIC EACH EYE ×2 (07:58→12:53)
[2024-07-18 08:23] LABS: Absolute Lymphocyte Count 0.73 X10^3/uL (0.83-4.51); Absolute Neutrophil Count 3.3 X10^3/uL (2.0-7.7); Basophil# 0.02 X10^3/uL; Basophil% 0.5 % (0-1); Eosinophil# 0.02 X10^3/uL; Eosinophils% 0.5 % (0-5); Hematocrit 31.8 % (40-54); Hemoglobin 10.7 g/dL (13.0-16.5); Lymphocyte # 0.73 X10^3/ul (0.83-4.51); Lymphocyte % 17.6 % (19-41); Mean Corp Hgb Conc 33.6 g/dL (32-36); Mean Corpuscular Hgb 32.3 pg (27.0-32.0); Mean Corpuscular Volume 96.1 fL (80-94); Mean Platelet Vol. 10.3 fl (6.2-12.0); Monocyte# 0.09 X10^3/uL; Monocyte% 2.2 % (0-10); NRBC Flagged by Analyzer 0 % (0-5); Neutrophil # 3.26 X10^3/uL (2.7-7.7); Neutrophil % 78.7 % (47-70); POSITIVE COUNT YES; POSITIVE MORPHOLOGY YES; Platelet Count 99 K/mm3 (150-450); RBC Distribution Width CV 14.4 % (11.6-14.6); Red Blood Count 3.31 M/mm3 (4.6-6.2); White Blood Count 4.1 K/mm3 (4.4-11.0)
[2024-07-18 08:41] LABS: Differential Indicated SCAN CRITERIA MET
[2024-07-18 08:42] LABS: Atypical Lymphocyte 1+ %; Differential Comment SCANNED
[2024-07-18 08:43] LABS: Platelet Estimate MOD DEC (ADEQ)
[2024-07-18 08:49] LABS: Magnesium 2.3 mg/dL (1.5-2.2)
[2024-07-18 08:51] LABS: ALB/GLOB Ratio 1.1 RATIO (0.9-2.4); AST(SGOT) 60 U/L (<=37); Alanine Aminotransfer ALT/SGPT 44 U/L (<=46); Albumin, Serum 2.6 g/dL (3.4-4.8); Alkaline Phosphatase 242 U/L (40-129); Anion Gap 10 (5-15); BUN 50 mg/dL (4-19); BUN/Creat Ratio 30.6 RATIO (10-20); Calcium,Total 7.9 mg/dL (7.6-11.0); Carbon Dioxide 18.5 mmol/L (21.0-32.0); Chloride 112 mmol/L (98-108); Creatinine, Serum 1.64 mg/dL (0.70-1.20); EST Glomerular Filtration Rate 44 (>60); Estimated Creatinine Clearance 29.85 ml/min (50-250); Globulin 2.4 g/dL (2.2-4.2); Glucose 127 mg/dL (70-99); Potassium 5.3 mmol/L (3.3-5.1); Protein, Total 5.1 g/dL (5.9-8.4); Sodium Level 141 mmol/L (133-145); Total Bilirubin 0.21 mg/dL (0.00-1.30)
[2024-07-18] MEDS: guaiFENesin 1,200 MG Tablet 1200 MG PO (09:23)
[2024-07-18] MEDS: Petrolatum 33% Tube 1 APPLIC TOPICAL (09:23)
[2024-07-18] MEDS: Azithromycin 500 MG in Dextrose 5%-Water (250mL Bag) 250 ML 250 MG IV (09:26)
--- NOTE | 2024-07-18 09:41 | CASEMGMT ---
Insurance review for hospitals In-network with [facility] insurance if transfer is recommended is as follows: [facility], [place], [facility], [place], [facility], [facility], [facility], [facility], [place], [facility] ([facility]), and . See BUILDING ECONOMIST note. B TULIO RAGSDALE CM
[2024-07-18] MEDS: VANCOMYCIN LEFT EYE ×6 (12:53→22:24)
--- NOTE | 2024-07-18 13:47 | CHAPLAIN ---
Type of Pastoral Visit _x__ Initial Visit ___ Follow-up Visit ___ On-call Visit ___ General Patient Visit ___ Spiritual Assessment ___ Family Conference ___ Bereavement ___ Rapid Response ___ Code Blue ___ Other (describe below) Pastoral Care Referral From _x__ Patient ___ Family ___ Nurse ___ Physician ___ Sr. Manager Corporate Communications ___ Conduit Helper ___ Other (describe below) Sacrament/Intervention _x__ Active listening ___ Anointing ___ Jain ___ Bereavement ___ Communion ___ Kathya exploration ___ ___ Life review ___ Prayer ___ Reconciliation ___ Sacrament of Sick _x__ Supportive presence ___ Wedding ___ Other (describe below) Pastoral Comments patient is alert and eating lunch; pt is asked about his wellness, his coping, his support, and if there are any concerns; pt had visit this morning from some family that traveled a fair distance to see him; pt has limited family; pt denies needs or concerns at this time;
--- NOTE | 2024-07-18 21:33 | PCM.PN.BLA ---
Progress Note CRITICAL CARE EVENT NOTE Called by RN for decreased responsiveness. Evaluated patient over telemedicine cart. HR 39, sinus. Pacer pads placed Temp 80. BS and BP ok. Seems to be adequately protecting airway at this time. Gave 0.5mg atropine with good response Check stat labs and ABG Hydrocortisone 200mg now and increase to 100mg q8hr. External warming measures.
[2024-07-18] MEDS: Hydrocortisone Sod Succinate 100 MG/2 ML Vial 200 MG IV (21:40)
[2024-07-18] MEDS: Atropine Sulfate 1 MG/10 ML Syringe 0.5 MG IV (22:08)
[2024-07-18 22:10] LABS: Base Excess -4 mmol/L (-2 to +2); Bicarbonate 23.2 mmol/L (22-26); Blood Gas Specimen Type ART; Mode Not entered; O2 Delivery Device Cannula; PO2 78 mmHG (75-100); SITE R Radial; SO2 93 % (95-99); Total Carbon Dioxide 25 mmol/L; pCO2 49.8 mmHg (35-45); pH 7.28 (7.35-7.45)
[2024-07-18 22:19] LABS: Absolute Neutrophil Count 4.6 X10^3/uL (2.0-7.7); Basophil# 0.02 X10^3/uL; Basophil% 0.4 % (0-1); Eosinophil# 0.01 X10^3/uL; Eosinophils% 0.2 % (0-5); Hematocrit 31.2 % (40-54); Hemoglobin 10.6 g/dL (13.0-16.5); Mean Corpuscular Hgb 32.5 pg (27.0-32.0); Mean Corpuscular Volume 95.7 fL (80-94); Mean Platelet Vol. 10.1 fl (6.2-12.0); Monocyte% 1.8 % (0-10); NRBC Flagged by Analyzer 0 % (0-5); Neutrophil # 4.58 X10^3/uL (2.7-7.7); Neutrophil % 81.1 % (47-70); POSITIVE MORPHOLOGY YES; Platelet Count 112 K/mm3 (150-450); RBC Distribution Width CV 14.3 % (11.6-14.6); RBC Distribution Width SD 50.4 fl (35.1-43.9); Red Blood Count 3.26 M/mm3 (4.6-6.2); White Blood Count 5.6 K/mm3 (4.4-11.0)
[2024-07-18 22:21] LABS: Differential Indicated SCAN CRITERIA MET
[2024-07-18 22:40] LABS: Bedside Glucose 151 mg/dL (74-106)
[2024-07-18 22:43] LABS: ALB/GLOB Ratio 1.3 RATIO (0.9-2.4); AST(SGOT) 61 U/L (<=37); Alanine Aminotransfer ALT/SGPT 50 U/L (<=46); Albumin, Serum 2.7 g/dL (3.4-4.8); Alkaline Phosphatase 252 U/L (40-129); Anion Gap 13 (5-15); BUN 48 mg/dL (4-19); BUN/Creat Ratio 30.8 RATIO (10-20); Calcium,Total 8.2 mg/dL (7.6-11.0); Carbon Dioxide 18.7 mmol/L (21.0-32.0); Chloride 114 mmol/L (98-108); Creatinine, Serum 1.55 mg/dL (0.70-1.20); EST Glomerular Filtration Rate 47 (>60); Estimated Creatinine Clearance 31.58 ml/min (50-250); Glucose 180 mg/dL (70-99); Magnesium 2.5 mg/dL (1.5-2.2); Phosphorus 4.1 mg/dL (2.7-4.5); Potassium 4.6 mmol/L (3.3-5.1); Protein, Total 4.7 g/dL (5.9-8.4); Sodium Level 145 mmol/L (133-145); Total Bilirubin 0.21 mg/dL (0.00-1.30)
[2024-07-18] MEDS: 0.9% Saline Lock 10 ML Syringe IV ×3 (22:53→23:44)
[2024-07-18 23:01] LABS: Crenated RBC 2+; Platelet Estimate SLT DEC (ADEQ); Vacuolated Cells 1+
[2024-07-18] MEDS: Sodium Bicarbonate 150 MEQ in Dextrose 5%-Water (1000mL Bag) 1,000 ML 75 MEQ IV (23:31)
[2024-07-18] MEDS: Sodium Bicarbonate 8.4% 50 ML Syringe 50 MEQ IV (23:31)
[2024-07-18] MEDS: HYDROmorphone 0.5 MG/0.5 ML SYRINGE 0.3 MG IV (23:44)
[2024-07-19] VITALS (20 sets, daily range): BP systolic 84–151; BP diastolic 41–83; PULSE 49–88; RESP 11–23; TEMP 28.8–36.5; O2SAT 97–100; BMI 19.5
[2024-07-19 00:22] LABS: Base Excess 0 mmol/L (-2 to +2); Bicarbonate 25.9 mmol/L (22-26); Blood Gas Specimen Type ART; Mode Not entered; O2 Delivery Device Cannula; PO2 106 mmHG (75-100); SITE R Radial; SO2 98 % (95-99); Total Carbon Dioxide 28 mmol/L; pCO2 49.6 mmHg (35-45); pH 7.33 (7.35-7.45)
[2024-07-19] MEDS: Glycerin/Hypromellose/PEG400 15 ml Bottle 1 DRP EACH EYE ×13 (01:11→12:18)
[2024-07-19] MEDS: HYDROmorphone 0.5 MG/0.5 ML SYRINGE IV (01:11)
[2024-07-19] MEDS: 0.9% Saline Lock 10 ML Syringe IV ×2 (01:11→04:08)
[2024-07-19] MEDS: VANCOMYCIN LEFT EYE ×6 (01:14→11:06)
[2024-07-19] MEDS: Insulin Lispro 100 UNIT/ML INSULN.PEN SC ×2 (01:33→05:10)
[2024-07-19 01:42] LABS: Bedside Glucose 223 mg/dL (74-106)
--- NOTE | 2024-07-19 02:07 | NURSING ---
Addendum entered by Aileen Souza 07/19/24 06:28: *While attempting to rewarm the patient, he continuously kicked off the blankets and bear hugger (warming device). For his safety B/L upper and lower extremities soft restraints were ordered and placed on the patient. A sitter was also placed at bedside to further ensure patient safety. Original Note: During this RNs initial assessment of the patient, he was not responding to any commands. However, he was seen actively moving around in his bed. This RN was informed during shift change report that the patient would periodically have bouts of this. Around 2099 this RN noted that the patient had minimal corneal reflexes, had a temperature of 81.2F temporal and 82F axillary, and he was not managing his secretions well. His HR was 40 at this time as well but this appeared to be his baseline since arriving to the hospital based on pervious charting. At that time the Tele-Intensivists (Dr. Anderson) was called to gain her input on the patient. The camera was set up in the patients room to get a better look at the situation. Defibrillator pads were placed on the patient and atropine was verbally ordered. 0.5mg/5 mL of atropine was given at 5 on 07/18. Patients HR increased in to the 50s at that time. During this time Dr. Anderson also ordered 200mg of IV hydrocortisone, an ABG, labs and oxygen to be placed on the patient. A Temperature sensing Demarco catheter was also placed at this time to gain a better idea of the patients core temperature. A warming device was placed on this patient to help improve his temperature. After the ABG results 1 amp of bicarb was ordered and a continuous IV sodium bicarb drip was initiated (see MAR for times). 0- The patient became restless and started grabbing at his demarco catheter and the wires around him. He also started digging at his low back to the point he was bleeding. For his safety B/L soft wrist restraints were ordered and placed on the patient. His RASS score was adjusted to a +2-3 at this point. Shortly after this Dr. Anderson was called again due to increasing agitation. See MAR for medication
[2024-07-19] MEDS: HYDROmorphone 1 MG/ML Syringe IV (04:07)
[2024-07-19 04:19] LABS: Absolute Lymphocyte Count 0.62 X10^3/uL (0.83-4.51); Absolute Neutrophil Count 5.2 X10^3/uL (2.0-7.7); Basophil# 0.02 X10^3/uL; Basophil% 0.3 % (0-1); Hematocrit 30.1 % (40-54); Hemoglobin 10.3 g/dL (13.0-16.5); Lymphocyte # 0.62 X10^3/ul (0.83-4.51); Lymphocyte % 10.1 % (19-41); Mean Corp Hgb Conc 34.2 g/dL (32-36); Mean Corpuscular Hgb 32.4 pg (27.0-32.0); Mean Corpuscular Volume 94.7 fL (80-94); Mean Platelet Vol. 10.2 fl (6.2-12.0); Monocyte# 0.33 X10^3/uL; Monocyte% 5.4 % (0-10); NRBC Flagged by Analyzer 0 % (0-5); Neutrophil # 5.17 X10^3/uL (2.7-7.7); POSITIVE MORPHOLOGY YES; Platelet Count 119 K/mm3 (150-450); RBC Distribution Width CV 14.4 % (11.6-14.6); RBC Distribution Width SD 50.6 fl (35.1-43.9); Red Blood Count 3.18 M/mm3 (4.6-6.2); White Blood Count 6.2 K/mm3 (4.4-11.0)
[2024-07-19 04:26] LABS: Differential Indicated SCAN CRITERIA MET
[2024-07-19] MEDS: Norepinephrine 8 MG in 0.9% Normal Saline (250mL Bag) 242 ML 9.4 MG CONT INF (05:00)
[2024-07-19] MEDS: Hydrocortisone Sod Succinate 100 MG/2 ML Vial IV (05:06)
[2024-07-19] MEDS: Piperacil/Tazobactam 3.375 GM in 0.9% Normal Saline (50mL MB+) 50 ML IV (05:16)
[2024-07-19 05:30] LABS: Bedside Glucose 246 mg/dL (74-106)
[2024-07-19 05:51] LABS: Platelet Estimate SLT DEC (ADEQ); Red Cell Morphology NORM C+C NORMAL (NORM C&C); Vacuolated Cells 1+
[2024-07-19 06:00] LABS: Anion Gap 12 (5-15); BUN 52 mg/dL (4-19); BUN/Creat Ratio 31.6 RATIO (10-20); Calcium,Total 8.2 mg/dL (7.6-11.0); Carbon Dioxide 21.6 mmol/L (21.0-32.0); Chloride 115 mmol/L (98-108); Creatinine, Serum 1.66 mg/dL (0.70-1.20); EST Glomerular Filtration Rate 43 (>60); Estimated Creatinine Clearance 30.48 ml/min (50-250); Glucose 265 mg/dL (70-99); Potassium 4.1 mmol/L (3.3-5.1); Sodium Level 148 mmol/L (133-145)
--- NOTE | 2024-07-19 08:02 | PCM.PN.INT ---
Assessment & Plan Assessment/Plan (1) Sepsis: QUALIFIERS: Sepsis type: sepsis due to unspecified organism Sepsis acute organ dysfunction status: with acute organ dysfunction Severe sepsis acute organ dysfunction type: encephalopathy Severe sepsis shock status: with septic shock Qualified Code(s): A41.9 - Sepsis, unspecified organism; R65.21 - Severe sepsis with septic shock; G93.41 - Metabolic encephalopathy (2) Adrenal insufficiency: PLAN: Plan RECOMMENDATIONS: 1. Continue empiric antimicrobials. 2. Continue Levophed to maintain a mean arterial pressure at or above 65 mmHg. 3. Continue stress dose steroids. 4. Avoid sedating medications. TSH was within normal limits. Check serum ammonia level. 5. Continue eyedrops per outpatient recommendations. 6. Subcutaneous heparin for DVT prophylaxis. 7. Obtain echocardiogram. 8. Awaiting transfer to [facility], pending bed availability. IMPRESSIONS: 1. Septic shock The patient presented with sepsis due to suspected pneumonia with acute sepsis related organ dysfunction as evidenced by hypotension and lactic acidemia. The patient ultimately had to be placed on vasopressor support to maintain hemodynamic stability. Levophed will be continued to maintain a mean arterial pressure at or above 65 mmHg. In light of his history of adrenal insufficiency, stress dose steroids will be continued. Empiric antibiotics will be maintained, pending further infectious workup. 2. Encephalopathy Likely related to #1 coupled with side effects of steroids and opiate pain medication administration. Attempt to minimize sedating medications as feasible. TSH was within normal limits. Serum ammonia level is pending. 3. History of adrenal insufficiency Continue stress dose steroids as ordered, given that the patient is maintained on low-dose hydrocortisone on an outpatient basis. 4. Acute kidney injury Unclear baseline. However, I do suspect that the creatinine increase may be prerenal in etiology. Continue to monitor urine output. There is no current indication for renal replacement therapy at the present time. 5. 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 Continue home medications as indicated. Continue home medications as indicated. CODE STATUS: Full code TIME: 34 minutes of critical care time, independent of procedures, was spent addressing the patient's septic shock, encephalopathy, history of adrenal insufficiency, review of all data and collaboration with care team. Subjective Subjective The patient was seen and examined at the bedside this morning. Events from the last 24 hours have been reviewed. Overnight, the patient apparently became less responsive and bradycardic. He was ultimately given atropine with adequate response. Unfortunately, the patient became progressively hypotensive and was initiated on Levophed. White blood cell count remains normal. Hemoglobin was noted to be 10.3 g/dL. Platelet count is low at 119,000. Creatinine is stable at 1.6. Glucose is elevated at 265. The patient still has a transfer pending to [facility], once a bed is available. Objective Data Objective Data The patient's most recent lab work, culture data and imaging studies have all been personally reviewed. Blood and urine cultures are pending. Respiratory viral panel was negative. Strep and urine Legionella antigens were negative. Vital Signs: Vital Signs Temp Pulse Resp BP Pulse Ox O2 Del Method O2 Flow Rate 89.6 F L 61 13 114/50 L 100 Room Air 1 07/19/24 07:00 07/19/24 07:00 07/19/24 07:00 07/19/24 07:00 07/19/24 07:05 07/19/24 07:05 07/19/24 03:00 FiO2 1 07/19/24 02:00 Oxygen Flow Rate (L/min) 1 Oxygen Delivery Method Room Air Weight: 121 lb 11.123 oz Body Mass Index (BMI) 19.5 Intake & Output: Intake and Output for Last 24 Hours 07/17/24 07/18/24 07/19/24 23:59 23:59 23:59 Intake Total 2049 3138.28 / 3138.28 82.90 / 82.90 Output Total 275 / 550 405 / 405 Balance 2049 2863.28 / 2588.28 -322.10 / -322.10 Medical Nutrition Assessment Dietitian: Malnutrition Criteria Met Start: 07/18/24 14:52 Freq: Status: Active Protocol: Document 07/18/24 14:52 SB (Rec: 07/18/24 14:52 SB [id number]) Nutrition Malnutrition Evidence of Yes Malnutrition Exists Malnutrition (severe Acute Illness/Injury ): Evidenced By Suboptimal Energy Intake (Severe),Weight Loss (Severe) Clinical Problem Acute Disease or Injury Related Malnutrition Etiology severe related to inadequate oral intake and increased energy expenditure due to T-cell lymphoma and squamous cell cancer Signs/Symptoms as evidenced by PO meeting <50% of estimated nutrition needs x 5 days and 6% unintentional weight loss x 1 week. Status Active Problem Recommendation Dietitian Continue regular diet. Recommendations/ Will order 240ml chocolate EPHP TID with meals. Changes Will monitor weight trends. Lab / Micro Data Attestation: I reviewed the patient's lab results. 07/19/24 04:11 07/19/24 04:11 Labs: Laboratory Results - last 24 hr 07/18/24 07:50: WBC 4.1 L, RBC 3.31 L, Hgb 10.7 L, Hct 31.8 L, MCV 96.1 H, MCH 32.3 H, MCHC 33.6, RDW Std Deviation 50.0 H, RDW Coeff of Silvio 14.4, Plt Count 99 L, MPV 10.3, Immature Gran % (Auto) 0.500, Neut % (Auto) 78.7 H, Lymph % (Auto) 17.6 L, [place] % (Auto) 2.2, Eos % (Auto) 0.5, Baso % (Auto) 0.5, Absolute Neuts (auto) 3.3, Absolute Lymphs (auto) 0.73 L, Nucleated RBC % 0, Differential Comment SCANNED, Atypical Lymphocytes 1+, Platelet Estimate MOD DEC, Sodium 141, Potassium 5.3 H, Chloride 112 H, Carbon Dioxide 18.5 L, Anion Gap 10, BUN 50 H, Creatinine 1.64 H, Estim Creat Clear Calc 29.85 L, Est GFR (MDRD) Non-Af 44 L, BUN/Creatinine Ratio 30.6 H, Glucose 127 H, Calcium 7.9, Magnesium 2.3 H, Total Bilirubin 0.21, AST 60 H, ALT 44, Alkaline Phosphatase 242 H, Total Protein 5.1 L, Albumin 2.6 L, Globulin 2.4, Albumin/Globulin Ratio 1.1 07/18/24 21:13: POC Glucose 151 H 07/18/24 22:00: WBC 5.6, RBC 3.26 L, Hgb 10.6 L, Hct 31.2 L, MCV 95.7 H, MCH 32.5 H, MCHC 34.0, RDW Std Deviation 50.4 H, RDW Coeff of Silvio 14.3, Plt Count 112 L, MPV 10.1, Immature Gran % (Auto) 0.500, Neut % (Auto) 81.1 H, Lymph % (Auto) 16.0 L, [place] % (Auto) 1.8, Eos % (Auto) 0.2, Baso % (Auto) 0.4, Absolute Neuts (auto) 4.6, Absolute Lymphs (auto) 0.90, Nucleated RBC % 0, Toxic Vacuolation 1+, Platelet Estimate SLT DEC, Crenated Cell 2+, Sodium 145, Potassium 4.6, Chloride 114 H, Carbon Dioxide 18.7 L, Anion Gap 13, BUN 48 H, Creatinine 1.55 H, Estim Creat Clear Calc 31.58 L, Est GFR (MDRD) Non-Af 47 L, BUN/Creatinine Ratio 30.8 H, Glucose 180 H, Calcium 8.2, Phosphorus 4.1, Magnesium 2.5 H, Total Bilirubin 0.21, AST 61 H, ALT 50 H, Alkaline Phosphatase 252 H, Total Protein 4.7 L, Albumin 2.7 L, Globulin 2.0 L, Albumin/Globulin Ratio 1.3 07/19/24 01:23: POC Glucose 223 H 07/19/24 04:11: WBC 6.2, RBC 3.18 L, Hgb 10.3 L, Hct 30.1 L, MCV 94.7 H, MCH 32.4 H, MCHC 34.2, RDW Std Deviation 50.6 H, RDW Coeff of Silvio 14.4, Plt Count 119 L, MPV 10.2, Immature Gran % (Auto) 0.200, Neut % (Auto) 84.0 H, Lymph % (Auto) 10.1 L, [place] % (Auto) 5.4, Eos % (Auto) 0.0, Baso % (Auto) 0.3, Absolute Neuts (auto) 5.2, Absolute Lymphs (auto) 0.62 L, Nucleated RBC % 0, Differential Comment , Toxic Vacuolation 1+, Platelet Estimate SLT DEC, RBC Morphology NORM C+C, Sodium 148 H, Potassium 4.1, Chloride 115 H, Carbon Dioxide 21.6, Anion Gap 12, BUN 52 H, Creatinine 1.66 H, Estim Creat Clear Calc 30.48 L, Est GFR (MDRD) Non-Af 43 L, BUN/Creatinine Ratio 31.6 H, Glucose 265 H, Calcium 8.2 07/19/24 05:10: POC Glucose 246 H Micro: Microbiology 07/17/24 20:30 Urine, Clean Catch Streptococcus pneumoniae Antigen (M - Final 07/17/24 20:30 Urine, Clean Catch Legionella Antigen - Final 07/18/24 11:25 Nasal Secretion MRSA (PCR) - Final 07/18/24 08:00 Mucosa - Nasopharyngeal Respiratory Panel (PCR) - Final 07/17/24 20:15 Mucosa - Nose SARS-CoV-2, Influenza & RSV (PCR) - Final ABG Data ABG results: ABG 07/18/24 07/19/24 22:05 00:16 Specimen Type ART ART Sample Site R Radial R Radial pH 7.28 L 7.33 L Bicarbonate Actual 23.2 25.9 Total CO2 25 28 Base Excess -4 L 0 O2 Saturation 93 L 98 O2 % 1.0 1.0 ABG pCO2 49.8 H 49.6 H ABG pO2 78 106 H Dajuan Test N/A N/A O2 Delivery Device Cannula Cannula Vent Mode Not entered Not entered Physical Exam Const Constitutional Narrative: The patient is alert but will not currently engage in any form of verbal interaction. He is currently in restraints. The patient is confused and disoriented. HEENT normocephalic and head/scalp atraumatic HEENT Narrative: Dry mucous membranes Eyes PERRL and EOMs intact bilaterally Neck supple General: trachea midline Resp normal respiratory effort Auscultation: Negative for rales, rhonchi or wheezes Cardio S1 normal heart sound and S2 normal heart sound Rate: bradycardia GI normal to inspection, nondistended, normoactive bowel sounds Extremity no clubbing, cyanosis or edema Skin Skin Narrative: Diffusely erythematous thickened and peeling skin. Neuro CN's II-XII intact bilaterally, moves all extremities and no focal motor deficits Psych Mood & Affect: flat affect Charges/Coding Procedures Hospitalists Procedures: 25768 Critical Care 1st Hr
--- NOTE | 2024-07-19 08:07 | ECHOD_ITS ---
Reason For Study Reason For Study: Arrhythmia Procedure This was a 2D Doppler, Color Flow transthoracic echocardiogram. Technically difficult study due to body habitus and positioning. Patient scanned supine and was unable to hold still even while in restraints. Most images taken from subcostal window. Exam performed portable in ICU/CCU. Left Ventricle Normal LV size. Left ventricular systolic function is normal. The left ventricular ejection fraction is 55 %. Stage 1 diastolic dysfunction. No regional wall motion abnormalities noted. Right Ventricle Normal RV size. Normal systolic function. Atria Normal left atrium. Normal right atrium. Mitral Valve Normal mitral valve. Tricuspid Valve Normal tricuspid valve. Aortic Valve Trisinus/trileaflet aortic valve. Great Vessels Normal aortic root. The pulmonary artery is normal size. Pericardium/Pleural No pericardial effusion. MMode/2D Measurements & Calculations LVIDd: 4.7 cm IVSd: 0.91 cm LA dimension(2D): 4.2 cm LVIDs: 3.0 cm LVPWd: 0.65 cm FS: 36.2 % Time Measurements MV dec time: 0.20 sec Doppler Measurements & Calculations MV E max julien: 149.1 cm/sec MV V2 max: 203.8 cm/sec Ao V2 max: 285.6 cm/sec MV A max julien: 162.8 cm/sec MV max P.6 mmHg Ao max P.6 mmHg MV E/A: 0.92 MV V2 mean: 118.1 cm/sec MV mean P.5 mmHg MV V2 VTI: 35.3 cm LV V1 max: 210.8 cm/sec PA V2 max: 106.8 cm/sec LV V1 max P.8 mmHg ECHO/Echo Complete Interpretation Summary Normal LV size. Left ventricular systolic function is normal. The left ventricular ejection fraction is 55 %. Stage 1 diastolic dysfunction. Ordering Physician: Shady Almodovar Performed By: Wilberto Guidry RCS
--- NOTE | 2024-07-19 10:24 | DS.PCM_ITS ---
Providers Date of Admission: 07/17/24 Date of Discharge: 07/19/24 Primary Care Physician: Dr. Vincent Ash MD Consultations 07/18/24 01:38 Consult: Drywall Foreman / Pulmonary Medicine Routine Consulting Provider: Intensivists/Pulmonary Med Reason for Consult: Sepsis with Septic Shock +/- Adrenal Crisis with DARYL and Metabolic Encephal EMERGENT Consult: No MD Notified: Yes Date Notified: 07/18/24 Time Notified: 05:24 Method of Notification: Text 07/18/24 22:59 Consult: Onc/Wound/client relationship manager Routine Comment: Reason For Visit: SEPSIS ADRENAL CRISIS LACTIC ACIDOSIS AND & Diagnosis Discharge Diagnosis (1) Sepsis: Status: Acute Code(s): A41.9 - Sepsis, unspecified organism Qualifiers: Sepsis acute organ dysfunction status: with acute organ dysfunction S epsis type: sepsis due to unspecified organism Severe sepsis acute organ dysfunction type: encephalopathy Severe sepsis shock status: with septic shock Qualified Code(s): A41.9 - Sepsis, unspecified organism; R65.21 - Severe sepsis with septic shock; G93.41 - Metabolic encephalopathy (2) Adrenal insufficiency: Status: Acute Code(s): E27.40 - Unspecified adrenocortical insufficiency Plan #Suspected sepsis secondary to right upper lobe pneumonia # Adrenal crisis on top of chronic adrenal insufficiency # Suspect DARYL # 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 #Hypothyroidism #GERD #anxiety Medications at Discharge Home Medications albuterol 90 mcg/actuation aerosol inhaler 180 mcg inhalation Q6H PRN 07/17/24 ascorbic acid (vitamin C) 250 mg tablet 250 mg PO BID 07/17/24 carboxymethylcellulose 1 ea miscellaneous .hourly 07/17/24 carboxymethylcellulose sodium 1 % eye liquid gel drops (Refresh Liquigel) 1 drp EACH EYE Q1H 07/17/24 emollient combination no.119 (Eucerin Advanced Repair topical cream) 1 applic topical DAILY 07/17/24 erythromycin 5 mg/gram (0.5 %) eye ointment 1 applic EACH EYE DAILY 07/17/24 folic acid 1 mg tablet 3 mg PO DAILY 07/17/24 furosemide 20 mg tablet 20 mg PO DAILY 07/17/24 hydrocortisone 5 mg tablet (Cortef) 5 mg PO DAILY 07/17/24 hydroxyzine HCl 25 mg tablet 25 mg PO TID PRN anxiety 07/17/24 levothyroxine 50 mcg tablet (Euthyrox) 50 mcg PO DAILY 07/17/24 loratadine 10 mg tablet 10 mg PO DAILY 07/17/24 metronidazole 250 mg tablet 250 mg PO BID 07/17/24 mogamulizumab-kpkc 4 mg/mL intravenous solution (Poteligeo) IV 07/17/24 multivitamin with minerals 1 tab PO DAILY 07/17/24 ofloxacin 0.3 % eye drops (Ocuflox) 1 drp EACH EYE Q6H 07/17/24 omeprazole 40 mg capsule,delayed release 40 mg PO DAILY 07/17/24 polyethylene glycol 3350 17 gram/dose oral powder (Miralax) 17 g PO DAILY 07/17/24 prednisolone acetate 1 % eye drops,suspension 1 drp LEFT EYE BID 07/17/24 sennosides 8.6 mg tablet (Evac-U-Gen (sennosides)) 8.6 mg PO DAILY 07/17/24 thiamine HCl (vitamin B1) 100 mg tablet 100 mg PO DAILY 07/17/24 triamcinolone acetonide 0.1 % topical ointment 1 applic topical BID 07/17/24 valacyclovir 500 mg tablet 500 mg PO DAILY 07/17/24 zinc sulfate 50 mg zinc (220 mg) capsule (Zinc-220) 50 mg PO DAILY 07/17/24 Hospital Course Summary of Care Provided Minutes Spent on Discharge: 35 Hospital Course: #Suspected sepsis secondary to right upper lobe pneumonia # Adrenal crisis on top of chronic adrenal insufficiency # Suspect DARYL # 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 Patient was found to be hypotensive with blood pressure 72/21 and a lactic acid of 3, CT showed a patchy groundglass opacity within the right upper lobe concerning for infectious process. Patient also had suspected DARYL with a creatinine of 1.77 and a BUN of 53 and had metabolic encephalopathy present. It is felt the patient was septic due to pneumonia with additional adrenal crisis due to his chronic adrenal insufficiency with acute illness. Patient admitted to the ICU on stress dose steroids, IV fluids, broad-spectrum antibiotics, and enamel machine operator consult. Patient initially seemed to stabilize and was being treated for his pneumonia while awaiting transfer to [facility], which was initiated in the ED as that is where patient follows and he has significant medical complexity, however he decompensated further overnight from 07/18 to 07/19. He became increasingly confused and was hypothermic and bradycardic, enamel machine operator evaluated patient overnight and gave atropine for a heart rate of 39 which did improve that, hydrocortisone was increased and external warming measures were initiated. In the a.m. patient did get bed at [facility] and he was transferred to tertiary care facility for further management. Physical Exam Narrative General: Patient laying in bed, wakes up but not purposefully interacting HEENT: Atraumatic, skin changes diffusely Eyes: Anicteric Neck: Supple Respiratory: No overt respiratory distress, somewhat diminished bilaterally Cardiovascular: Regular rate and rhythm GI: Soft, nontender, nondistended Extremities: No significant pitting edema Musculoskeletal: Moving all extremities Neuro: No overt focal neurological deficits Skin: Diffuse skin changes noted Psych: Superficially cooperative Medical Records Data Medical Nutrition Assessment Dietitian: Malnutrition Criteria Met Start: 07/18/24 14:52 Freq: Status: Active Protocol: Document 07/18/24 14:52 SB (Rec: 07/18/24 14:52 SB [id number]) Nutrition Malnutrition Evidence of Yes Malnutrition Exists Malnutrition (severe Acute Illness/Injury ): Evidenced By Suboptimal Energy Intake (Severe),Weight Loss (Severe) Clinical Problem Acute Disease or Injury Related Malnutrition Etiology severe related to inadequate oral intake and increased energy expenditure due to T-cell lymphoma and squamous cell cancer Signs/Symptoms as evidenced by PO meeting <50% of estimated nutrition needs x 5 days and 6% unintentional weight loss x 1 week. Status Active Problem Recommendation Dietitian Continue regular diet. Recommendations/ Will order 240ml chocolate EPHP TID with meals. Changes Will monitor weight trends. Weight / BMI Weight Weight: 55.2 kg Body Mass Index (BMI) 19.5 ABG / Lab / Microbiology Data 07/19/24 04:11 07/19/24 04:11 Laboratory: Laboratory Results - last 24 hr 07/18/24 21:13: POC Glucose 151 H 07/18/24 22:00: WBC 5.6, RBC 3.26 L, Hgb 10.6 L, Hct 31.2 L, MCV 95.7 H, MCH 32.5 H, MCHC 34.0, RDW Std Deviation 50.4 H, RDW Coeff of Silvio 14.3, Plt Count 112 L, MPV 10.1, Immature Gran % (Auto) 0.500, Neut % (Auto) 81.1 H, Lymph % (Auto) 16.0 L, [place] % (Auto) 1.8, Eos % (Auto) 0.2, Baso % (Auto) 0.4, Absolute Neuts (auto) 4.6, Absolute Lymphs (auto) 0.90, Nucleated RBC % 0, Toxic Vacuolation 1+, Platelet Estimate SLT DEC, Crenated Cell 2+, Sodium 145, Potassium 4.6, Chloride 114 H, Carbon Dioxide 18.7 L, Anion Gap 13, BUN 48 H, C reatinine 1.55 H, Estim Creat Clear Calc 31.58 L, Est GFR (MDRD) Non-Af 47 L, B UN/Creatinine Ratio 30.8 H, Glucose 180 H, Calcium 8.2, Phosphorus 4.1, M agnesium 2.5 H, Total Bilirubin 0.21, AST 61 H, ALT 50 H, Alkaline Phosphatase 252 H, Total Protein 4.7 L, Albumin 2.7 L, Globulin 2.0 L, Albumin/Globulin Ratio 1.3 07/19/24 01:23: POC Glucose 223 H 07/19/24 04:11: WBC 6.2, RBC 3.18 L, Hgb 10.3 L, Hct 30.1 L, MCV 94.7 H, MCH 32.4 H, MCHC 34.2, RDW Std Deviation 50.6 H, RDW Coeff of Silvio 14.4, Plt Count 119 L, MPV 10.2, Immature Gran % (Auto) 0.200, Neut % (Auto) 84.0 H, Lymph % (Auto) 10.1 L, [place] % (Auto) 5.4, Eos % (Auto) 0.0, Baso % (Auto) 0.3, Absolute Neuts (auto) 5.2, Absolute Lymphs (auto) 0.62 L, Nucleated RBC % 0, Differential Comment , Toxic Vacuolation 1+, Platelet Estimate SLT DEC, RBC Morphology NORM C+C, Sodium 148 H, Potassium 4.1, Chloride 115 H, Carbon Dioxide 21.6, Anion Gap 12, BUN 52 H, Creatinine 1.66 H, Estim Creat Clear Calc 30.48 L, Est GFR (MDRD) Non-Af 43 L, BUN/Creatinine Ratio 31.6 H, Glucose 265 H, Calcium 8.2 07/19/24 05:10: POC Glucose 246 H 07/19/24 08:40: Ammonia 20.1 Microbiology: Microbiology 07/17/24 20:30 Urine, Clean Catch Streptococcus pneumoniae Antigen (M - Final 07/17/24 20:30 Urine, Clean Catch Legionella Antigen - Final 07/18/24 11:25 Nasal Secretion MRSA (PCR) - Final 07/18/24 08:00 Mucosa - Nasopharyngeal Respiratory Panel (PCR) - Final 07/17/24 20:15 Mucosa - Nose SARS-CoV-2, Influenza & RSV (PCR) - Final ABG: ABG 07/18/24 07/19/24 22:05 00:16 Specimen Type ART ART Sample Site R Radial R Radial pH 7.28 L 7.33 L Bicarbonate Actual 23.2 25.9 Total CO2 25 28 Base Excess -4 L 0 O2 Saturation 93 L 98 O2 % 1.0 1.0 ABG pCO2 49.8 H 49.6 H ABG pO2 78 106 H Dajuan Test N/A N/A O2 Delivery Device Cannula Cannula Vent Mode Not entered Not entered Radiography Diagnostic Testing: Radiology Impression Echocardiogram 07/19/24 08:07 Interpretation Summary Normal LV size. Left ventricular systolic function is normal. The left ventricular ejection fraction is 55 %. Stage 1 diastolic dysfunction. Ordering Physician: Shady Almodovar Performed By: Wilberto Guidry RCS D/C Instructions DC O2, CPAP, BIPAP Needs Home O2 Discharge instructions: No Meaningful Use Info Meaningful Use Meaningful Use Diagnoses (Choose all that apply): None applicable Ischemic Stroke Statin Dosing Therapy Reference: STATIN DOSE THERAPY REFERENCE: * Patients > 75 years receive moderate or high dose statin therapy. * Patients 75 years or YOUNGER should receive HIGH intensity statin dose unless contraindicated. You will be required to document reason for non-treatment if statin daily dose does not meet guidelines. HIGH DOSE STATIN THERAPY DAILY Atorvastatin > than or = to 40 mg Rosuvastatin > than or = to 20 mg Amlodipine + Atorvastatin > than or = to 2.5/40 mg Ezetimibe + Simvastatin 10/80 mg Simvastatin 80mg Discharge Plan Admission Admit Date/Time: 07/17/24 23:47 Primary Reason for Your Visit: Weakness, fever, confusion Attending Provider: Anjana Malcolm Primary Care Provider: Vincent Ash Consulting Providers: Mj Barber; Maury Hickman; Ridge Amaro; Shady Almodovar; Randolph Gurrola; Jamey Ramirez; Richie Chavez; Sejal Singh; Selwyn Gaviria; Navneet Ortega; Luis Miller; Tiffanie Anderson; Miguel Graves; Nia Velasco; Newton Valentino; Joshua Sheikh; Patrick Britt; Ion Diallo; Nimesh Woods; Parker Ziegler; García Liu; Carlos Manuel Corey; Tristen Carlisle; Randolph Rajput Instructions Patient Instructions: ED Fall Prevention Discharge Orders/Prescriptions Prescriptions: No Action albuterol 90 mcg/actuation aerosol 180 mcg inhalation Q6H PRN ascorbic acid (vitamin C) 250 mg tablet 250 mg PO BID carboxymethylcellulose Granules 1 ea miscellaneous .hourly erythromycin 5 mg/gram (0.5 %) ointment 1 applic EACH EYE DAILY Eucerin Advanced Repair Cream 1 applic topical DAILY folic acid 1 mg tablet 3 mg PO DAILY furosemide 20 mg tablet 20 mg PO DAILY hydrocortisone [Cortef] 5 mg tablet 5 mg PO DAILY hydroxyzine HCl 25 mg tablet 25 mg PO TID PRN (Reason: anxiety) levothyroxine [Euthyrox] 50 mcg tablet 50 mcg PO DAILY loratadine 10 mg tablet 10 mg PO DAILY metronidazole 250 mg tablet 250 mg PO BID Rx Instructions: Dissolve 1 tablet in 250 mL of NS. [place] on lesion BID multivitamin with minerals Tablet 1 tab PO DAILY ofloxacin [Ocuflox] 0.3 % drops 1 drp EACH EYE Q6H omeprazole 40 mg capsule,delayed release(DR/EC) 40 mg PO DAILY polyethylene glycol 3350 [Miralax] 17 gram/dose powder 17 g PO DAILY carboxymethylcellulose sodium [Refresh Liquigel] 1 % drops, liquid gel 1 drp EACH EYE Q1H Rx Instructions: while awake; not to exceed 16 doses per 24 hour period Poteligeo 4 mg/mL solution IV prednisolone acetate 1 % drops,suspension 1 drp LEFT EYE BID sennosides [Evac-U-Gen (sennosides)] 8.6 mg tablet 8.6 mg PO DAILY thiamine HCl (vitamin B1) 100 mg tablet 100 mg PO DAILY triamcinolone acetonide 0.1 % ointment 1 applic topical BID valacyclovir 500 mg tablet 500 mg PO DAILY zinc sulfate [Zinc-220] 50 mg zinc (220 mg) capsule 50 mg PO DAILY Referrals / Follow Up: Vincent Ash MD [Primary Care Provider] - Disposition Disposition (needs filled in before D/C Order can be placed): Acute Care Hospital Charges/Coding Visit Charges Inpatient E&M: 23314 Disch Hosp >30min
[2024-07-19 10:45] LABS: Ammonia 20.1 umol/L (16-60)
[2024-07-19] MEDS: Azithromycin 500 MG in Dextrose 5%-Water (250mL Bag) 250 ML 250 MG IV (11:05)
[2024-07-19] MEDS: prednisoLONE eye drops (5 mL) 1 DROP OPTH.BTL 1 DRP LEFT EYE (11:06)
[2024-07-19] MEDS: Erythromycin Base 1 OPTH.TUBE 1 APPLIC EACH EYE (11:07)
[2024-07-19] MEDS: Triamcinolone 0.1% Ointment 15 gm tube 1 APPLIC TOPICAL (11:10)
[2024-07-19] MEDS: Heparin Injection (Vial) 5,000 UNIT/ML VIAL 5000 UNIT SC (11:11)
[2024-07-19] MEDS: Petrolatum 33% Tube 1 APPLIC TOPICAL (11:11)
[2024-07-19] MEDS: OFLOXACIN 5 ML DROPS 1 ML OPHTHALMIC (12:17)
[2024-07-19] MEDS: Pantoprazole Sodium 40 MG in 0.9% Normal Saline (100mL MB+) 100 ML 330 MG IV (12:18)
== END 2024-07-19 13:10 | disposition short-term general hospital (02) | DRG 871 ==
LOC: ED 07-18 00:26 → ICU 07-18 03:15
PROVIDERS: Internal Medicine; Internal Medicine Critical Care Medicine; Admitting Provider Internal Medicine; Emergency Provider Emergency Medicine; PCP Family Medicine; Visit Provider Internal Medicine
DX: A41.9 Sepsis, unspecified organism (principal); R65.21 Severe sepsis with septic shock; E43 Unspecified severe protein-calorie malnutrition; G93.41 Metabolic encephalopathy; J18.9 Pneumonia, unspecified organism; C84.A0 Cutaneous T-cell lymphoma, unspecified, unspecified site; E27.2 Addisonian crisis; N17.9 Acute kidney failure, unspecified; Z68.1 Body mass index [BMI] 19.9 or less, adult; E03.9 Hypothyroidism, unspecified; I10 Essential (primary) hypertension; K21.9 Gastro-esophageal reflux disease without esophagitis; F41.9 Anxiety disorder, unspecified; Z79.51 Long term (current) use of inhaled steroids; Z79.899 Other long term (current) drug therapy
CPT/HCPCS: 36600; 71046; 71260; 74177; 80048; 80053; 80061; 80307; 81001; 82077; 82140; 82607; 82746; 82803; 82962; 83036; 83605; 83735; 84100; 84443; 85025; 85610; 85730; 87040; 87086; 87449; 87631; 87633; 87641; 93005; 93306; 94762; 97802; 99285; Q9967; A4216

== ENCOUNTER → 2024-09-27 | Outpatient (CLI) | payer MEDICARE, OTHER, SELFPAY ==
--- NOTE | 2024-09-27 11:08 | RAD_ITS ---
PROCEDURE: THORACIC SPINE 3 VIEWS 09/27/2024 REASON FOR EXAM: BACK PAIN TECHNIQUE: THORACIC SPINE 3 VIEWS COMPARISON: No prior FINDINGS: Vertebrae: Complete collapse of the T10 vertebrae. 50% loss of height of the T6 vertebrae in the T4 vertebrae. Discs: Mild multilevel disc space narrowing. Alignment: Normal alignment Other: Demineralization of the thoracic vertebrae. RAD/Thoracic Spine 3 Views IMPRESSION: Complete collapse of the T10 vertebrae. 50% loss of height of the T6 and T4 ve rtebrae. Reading Location: [place] [id number]
--- NOTE | 2024-09-27 11:08 | RAD_ITS ---
PROCEDURE: CERV SPINE 2 OR 3 VIEWS 09/27/2024 REASON FOR EXAM: BACK PAIN TECHNIQUE: CERV SPINE 2 OR 3 VIEWS COMPARISON: None. FINDINGS: Mild osteopenia. Grade 1 anterolisthesis of C2 on C3. Grade 1 anterolisthesis of C3 on C4. Grade 1 anterolisthesis of C4 on C5. Reversal of the cervical lordosis, probably muscular spasm and pain. There are diffuse spondylotic changes. Findings are demonstrated to by diffuse disc space narrowing, osteophyte formation and degenerative endplate sclerosis. There is diffuse facet joint arthropathy with secondary bilateral neural foramina narrowing. No fracture or dislocation is seen. No aggressive lytic or blastic bony lesion is noted. RAD/Cerv Spine 2 or 3 Views IMPRESSION: Spondylosis. Osteopenia. Reversal of the cervical lordosis, probably muscular spasm and pain. Reading [facility]
== END | disposition home or self-care (01) ==
LOC: RAD 10:49
PROVIDERS: PCP Family Medicine; Referring Provider Anesthesiology Pain Medicine; Visit Provider Anesthesiology Pain Medicine
DX: M54.9 Dorsalgia, unspecified (principal)
CPT/HCPCS: 72040; 72072